=== PATIENT | male | born 1960 | race Two or more races ===

== ENCOUNTER → 2017-01-01 | Outpatient (CLI) | payer BC, OTHER ==
--- NOTE | 2017-01-01 11:40 | REP ---
Prostate sonography: History: PSA. Sonographic findings: Trans rectal prostate sonography demonstrates unremarkable seminal vesicles. Prostate gland is heterogeneously enlarged with calcifications and cystic changes noted. Glandular dimensions are measured at 4.6 x 3.2 x 4.8 cm with a calculated glandular volume of 35.8 ml. Transrectal sonographic guidance provided to Dr. Becker who performed trans rectal ultrasound guided needle biopsy procedure . Signed by Matheus Londono MD 01/01/2017 11:31 A
== END ==
LOC: M SMT PRO 08:30
PROVIDERS: ATTEND Urology
DX: C61 Malignant neoplasm of prostate (principal)
CPT/HCPCS: 76872; 76942; G0416

== ENCOUNTER → 2017-01-22 | Outpatient (CLI) | payer BC, OTHER ==
--- NOTE | 2017-01-23 10:49 | RADONC ---
RADIATION ONCOLOGY CONSULTATION NOTE DATE: 01/22/2017 CHART NUMBER: [id number]. DIAGNOSIS: Prostate cancer. STAGE: IIA, TbN0m0. ECOG PERFORMANCE STATUS: Zero. CONSULTATION NOTE: Mr. Rae is a very pleasant, 56-year-old white male with the diagnosis of a stage IIA, [id number] moderate to poorly differentiated Donnie score 7 (3-4) adenocarcinoma of the prostate with a PSA level of 5.5 who is presenting to me today for discussion of definitive external beam radiation therapy with IMRT/IGRT as a therapeutic option. HISTORY OF PRESENT ILLNESS: The patient was in his usual state of health until routine PSA was done; it was found to be 5.5. On 01/01/2017, the patient underwent prostatic needle biopsy and pathology revealed a Donnie score 7 (3-4) adenocarcinoma of the left side of his prostate. The patient has done well since surgery and is now presenting to discuss his various therapeutic options including external beam radiation therapy with IMRT/IGRT. PAST MEDICAL HISTORY: The patient's past medical history is positive for hypertension. He has had gout in the past as well. ALLERGIES: The patient has NO KNOWN DRUG ALLERGIES. SOCIAL HISTORY: The patient does not smoke cigarettes. He drinks alcohol socially. FAMILY HISTORY: The patient's family history is negative for prostate cancer or other malignancies. REVIEW OF SYSTEMS: The patient's review of systems is noncontributory. Denies nausea, vomiting, fevers, chills, night sweats, diplopia, headaches, anxiety or depression, anorexia, weight loss, visual disturbances, chest pain, urinary or bowel difficulties, bone pain, or neurological problems. PHYSICAL EXAMINATION: The patient is a well-developed, well-nourished male in no acute distress. HEENT exam is normocephalic, atraumatic. Extraocular movements are intact. There is no palpable cervical, supraclavicular, infraclavicular, axillary, or inguinal lymphadenopathy present. Lungs are clear to auscultation and percussion. Heart has a regular rate and rhythm. Abdomen is benign with no hepatosplenomegaly, masses, or tenderness. Rectal examination reveals a normal anal sphincter tone. His prostate is smooth with no evidence of nodularity. Skeletal examination reveals no tenderness to pressure or percussion of the bony skeleton. Extremities reveal no clubbing, cyanosis, or edema. Neurologic exam is grossly intact, as is the remainder of the physical examination. MEDICAL NECESSITY: IMRT/IGRT is clinically indicated for the highly conformal dose planning required. The target volume is in close proximity to critical structures, such as the rectum, bladder, small bowel, and femoral heads. The volume of interest must be covered with narrow margins to adequately protect immediately adjacent structures. The plan requires interpretation of complex testing such as CT localization. As noted above, special planning (IMRT) and localizing (IGRT) is required and essential to maximally protect sensitive normal tissue structures which cannot be accomplished using conventional 3-dimensional planning. ASSESSMENT: I have had a lengthy discussion with this patient in detail about the potential benefits as well as possible acute and chronic sequelae of external beam radiation therapy. We discussed logistics of treatment planning, simulation and subsequent fractionated daily radiation treatments. I have discussed with the patient in detail as well the benefits and drawbacks of each of the treatment modalities including surgery, brachytherapy and external beam radiation with IMRT. The patient will consider his options and get back to us when he makes a decision. We also discussed the possibility of hormonal therapy with radiation. He will be discussing that once again with his urologist. cc: MD Cathy Treadwell PA
== END ==
LOC: M ONCR 14:10
PROVIDERS: ATTEND Radiology Radiation Oncology
DX: C61 Malignant neoplasm of prostate (principal)

== ENCOUNTER → 2017-02-13 | Outpatient (CLI) | payer BC, OTHER ==
--- NOTE | 2017-02-13 13:57 | REP ---
TRANSRECTAL PROSTATE ULTRASOUND GUIDANCE FOR FIDUCIARY MARKER PLACEMENT: Real-time sonographic evaluation of prostate performed utilizing transrectal probe for guidance for fiduciary marker placement. The images show a needle deploying fiduciary markers with six markers deployed by Dr. Becker. Signed by Ruel Avalos MD 02/13/2017 04:45 P
== END ==
LOC: M SMT PRO 11:48
PROVIDERS: ATTEND Urology
DX: C61 Malignant neoplasm of prostate (principal)
CPT/HCPCS: 76872; A4648

== ENCOUNTER 2017-02-28 11:11 | Outpatient (RCR) | payer BC, OTHER ==
--- NOTE | 2017-03-01 21:19 | RADONC ---
RADIATION ONCOLOGY SIMULATION NOTE DATE: 02/28/2017 CHART NUMBER: [id number] Mr. Rae was taken to the CT scan for CT simulation of his prostate field. CT was accomplished without difficulty or discomfort. Radiation treatment planning is underway and radiation treatments will begin subsequently. An immobilization device was created without difficulty or discomfort. It will be used throughout the course of treatment. I was physically present throughout the course of CT simulation.
== END 2017-03-21 ==
LOC: M ONCR 11:11
PROVIDERS: ATTEND Radiology Radiation Oncology
DX: C61 Malignant neoplasm of prostate (principal)

== ENCOUNTER → 2017-02-28 | Outpatient (CLI) | payer BC, OTHER ==
[2017-02-28 11:27] LABS: MEAN CORPUSCULAR HEMOGLOBIN 30.2 pg (27.0-33.0); MEAN CORPUSCULAR HGB CONC 33.4 g/dl (32.0-36.5); MEAN CORPUSCULAR VOLUME 90.4 fl (80.0-96.0); PLATELET COUNT, AUTOMATED 142 10^3/uL (150-450); RED CELL DISTRIBUTION WIDTH 12.4 % (11.5-14.5); WHITE BLOOD COUNT 5.2 10^3/uL (4.0-10.0)
== END ==
LOC: M RAD 10:20
PROVIDERS: ATTEND Radiology Radiation Oncology
DX: C61 Malignant neoplasm of prostate (principal)

== ENCOUNTER 2017-03-22 14:33 | Outpatient (RCR) | payer BC, OTHER | END 2017-04-21 | LOC: M ONCR 14:33 | DX: C61 Malignant neoplasm of prostate (principal) | CPT/HCPCS: 77336 ==

== ENCOUNTER 2017-04-23 11:02 | Outpatient (RCR) | payer BC, OTHER | END 2017-05-22 | LOC: M ONCR 11:02 | DX: C61 Malignant neoplasm of prostate (principal) | CPT/HCPCS: 77300 ==

== ENCOUNTER 2017-05-23 11:11 | Outpatient (RCR) | payer BC, OTHER | END 2017-06-19 | LOC: M ONCR 11:11 | DX: C61 Malignant neoplasm of prostate (principal) | CPT/HCPCS: 77336 ==

== ENCOUNTER → 2017-07-03 | Outpatient (CLI) | payer BC, OTHER ==
[2017-07-03 17:12] LABS: PROSTATIC SPECIFIC AG MONITOR 0.01 NG/ML (< 4.0)
== END ==
LOC: M ONCR 15:33
DX: C61 Malignant neoplasm of prostate (principal)
CPT/HCPCS: 84153

== ENCOUNTER → 2017-12-24 | Outpatient (CLI) | payer BC, OTHER ==
[2017-12-24 16:45] LABS: PROSTATIC SPECIFIC AG MONITOR < 0.01 NG/ML (< 4.0)
== END ==
LOC: M LAB 15:10
DX: C61 Malignant neoplasm of prostate (principal)
CPT/HCPCS: 84153

== ENCOUNTER → 2018-01-01 | Outpatient (CLI) | payer BC, OTHER | LOC: M ONCR 15:21 | DX: C61 Malignant neoplasm of prostate (principal) | CPT/HCPCS: G0463 ==

== ENCOUNTER → 2018-07-02 | Outpatient (CLI) | payer BC, OTHER ==
--- NOTE | 2018-07-07 10:33 | RADONC ---
RADIATION ONCOLOGY FOLLOWUP NOTE DATE: 07/02/2018 CHART NUMBER: [id number] DIAGNOSIS: Prostate cancer. STAGE: IIA, [id number]. ECOG PERFORMANCE STATUS: 0. FOLLOWUP NOTE: Mr. Rae is a very pleasant 57-year-old white male with the diagnosis of a Stage IIA, [id number], moderate to poorly differentiated Donnie score 7 (3-4) adenocarcinoma of prostate who is presenting to us today for routine followup visit 1 year and 1 month post completion of external beam radiation therapy. The patient presents today reporting that he is doing quite well with no complaints related to his radiation therapy or disease. He has no urinary or bowel difficulties and no bone pain. The patient's review of systems is noncontributory. He denies nausea, vomiting, fevers, chills, night sweats, diplopia, headaches, anxiety or depression, anorexia, weight loss, visual disturbances, chest pain, urinary or bowel difficulties, bone pain, or neurological problems. PHYSICAL EXAMINATION: The patient is a well-developed, well-nourished male in no acute distress. HEENT exam is normocephalic, atraumatic. Extraocular movements are intact. There is no palpable cervical, supraclavicular, infraclavicular, axillary, or inguinal lymphadenopathy present. Lungs are clear to auscultation and percussion. Heart has a regular rate and rhythm. Abdomen is benign with no hepatosplenomegaly, masses, or tenderness. Rectal examination reveals a normal anal sphincter tone. His prostate is smooth with no evidence of nodularity. Skeletal examination reveals no tenderness to pressure or percussion of the bony skeleton. Extremities reveal no clubbing, cyanosis, or edema. Neurologic exam is grossly intact as is the remainder of the physical examination. ASSESSMENT: The patient is clinically MUKUL at this time. He is continuing his close followup with his urologist, Dr. Oh Becker MD. In light of this I have discharged him from my followup except on an as needed basis. He has my cell phone number and office number if we could be of any assistance to him in the meantime. cc: MD Cathy Treadwell PA
== END ==
LOC: M ONCR 15:27
PROVIDERS: ATTEND Radiology Radiation Oncology
DX: Z08 Encounter for follow-up examination after completed treatment for malignant neoplasm (principal); Z92.3 Personal history of irradiation; Z85.46 Personal history of malignant neoplasm of prostate

== ENCOUNTER → 2019-04-20 | Outpatient (CLI) | payer BC, OTHER | LOC: M WUC 14:08 | PROVIDERS: ATTEND Urology | DX: C61 Malignant neoplasm of prostate (principal) ==

== ENCOUNTER 2019-05-08 19:53 | Inpatient (IN) | payer BC, OTHER ==
[~2019-05-08] VITALS: Ht 177.8 cm; Wt 113.5 kg
[2019-05-08] MEDS ORDERED: FEBU40TA4 PO (20:01)
[2019-05-08] MEDS ORDERED: METO200T28 PO (20:01)
[2019-05-08] MEDS ORDERED: OLME1TAB (20:01)
[2019-05-08 20:45] LABS: BASO % 0.3 % (0.0-1.0); EOS # 0.1 10^3/uL (0.0-0.5); EOS % 1.1 % (0.0-3.0); HEMATOCRIT 49.8 % (42.0-52.0); LYMPH # 1.4 10^3/uL (1.5-5.0); MEAN CORPUSCULAR HEMOGLOBIN 28.9 pg (27.0-33.0); MEAN CORPUSCULAR HGB CONC 32.1 g/dl (32.0-36.5); MEAN CORPUSCULAR VOLUME 90.1 fl (80.0-96.0); MONO # 0.8 10^3/uL (0.0-0.8); MONO % 7.2 % (0.0-5.0); NEUTROPHILS # 8.9 10^3/uL (1.5-8.5); PLATELET COUNT, AUTOMATED 213 10^3/uL (150-450); RED BLOOD COUNT 5.53 10^6/uL (4.30-6.10); WHITE BLOOD COUNT 11.2 10^3/uL (4.0-10.0)
[2019-05-08] MEDS ORDERED: IPRATROPIUM 0.5MG/ALBUTEROL 2.5MG INH SOL UD 3ML (DUONEB)(J7620) NEB ONE (20:45)
[2019-05-08 21:13] LABS: CALCIUM LEVEL 8.9 MG/DL (8.5-10.1); CK-MB VALUE MASS 4.7 NG/ML (<3.6); CREATININE FOR GFR 1.58 MG/DL (0.70-1.30); GLOMERULAR FILTRATION RATE 48.4 (>56); MB/CK RELATIVE INDEX 3.73 (< OR =4); TROPONIN I 1.7 NG/ML (< 0.10)
[2019-05-08] MEDS ORDERED: ISOVUE-370 76% 100ML VIAL (Q9967) As Ordered ONE (21:28)
--- NOTE | 2019-05-08 22:00 | REPVR ---
PROCEDURE INFORMATION: Exam: CT Angiography Chest With Contrast Exam date and time: 05/08/2019 9:41 PM Age: 58 years old Clinical indication: Shortness of breath; Additional info: SOB, hypoxia, tachycardia TECHNIQUE: Imaging protocol: Computed tomographic angiography of the chest with intravenous contrast. 3D rendering: MIP and/or 3D reconstructed images were created by the technologist. Radiation optimization: All CT scans at this facility use at least one of these dose optimization techniques: automated exposure control; mA and/or kV adjustment per patient size (includes targeted exams where dose is matched to clinical indication); or iterative reconstruction. Contrast material: ISOVUE 370; Contrast volume: 75 ml; Contrast route: IV; COMPARISON: CR CHEST 2 VIEW 05/08/2019 7:28 PM FINDINGS: Pulmonary arteries: There is a large saddle pulmonary embolism with extensive clot extending throughout both lungs. Mild enlargement of the main pulmonary artery. Aorta: Unremarkable. No aortic aneurysm. No aortic dissection. Lungs: Small subpleural airspace opacity in the left lower lobe. Lungs are otherwise clear. Airways are clear. No pulmonary masses. Pleural space: Trace left pleural effusion. Heart: Overall heart size is normal. Right atrial ventricular enlargement suggesting right heart strain. No pericardial effusion. Gallbladder and bile ducts: Layering calculi in the gallbladder. No signs of acute cholecystitis. Kidneys and ureters: Small cyst in the right kidney. Lymph nodes: Unremarkable. No enlarged lymph nodes. Bones/joints: Skeletal degenerative changes are noted. Mild scoliosis. Soft tissues: Unremarkable. IMPRESSION: 1. Large saddle pulmonary embolism with extensive thrombus throughout both lungs and right heart strain. 2. Small subpleural opacity in the left lower lobe may be related to pulmonary embolism versus developing pneumonia. 3. Trace left pleural effusion. Electronically signed by: Florentino Begum On 05/08/2019 22:00:20 PM
[2019-05-08] MEDS ORDERED: HEPARIN DRIP 25,000 UNITS in IV 1 EA IV SCH (22:08)
[2019-05-08] MEDS ORDERED: HEPARIN SOD (PORCINE) 5000 UNITS/ML VIAL IV ONE (22:15)
[2019-05-08 22:30] LABS: INR 1.08; PROTHROMBIN TIME 13.7 SECONDS (11.8-14.0)
[2019-05-08 22:31] LABS: PARTIAL THROMBOPLASTIN TIME 30.4 SECONDS (25.0-38.4)
[2019-05-08] MEDS ORDERED: TRIBTAB PO ×2 (22:34→22:46)
[2019-05-08] MEDS ORDERED: INDO-16 PO (22:46)
--- NOTE | 2019-05-08 23:08 | REPVR ---
PROCEDURE INFORMATION: Exam: US Duplex Lower Extremity Veins Exam date and time: 05/08/2019 10:49 PM Age: 58 years old Clinical indication: Other: Pe; Additional info: Pe, eval for dvt's TECHNIQUE: Imaging protocol: Real-time duplex ultrasound of the Lower Extremities with 2-D avilez scale, color Doppler flow and spectral waveform analysis with image documentation. Complete exam focused on the bilateral lower extremity veins. COMPARISON: No relevant prior studies available. FINDINGS: Right deep veins: Unremarkable. The common femoral, femoral, proximal profunda femoral and popliteal veins are patent without thrombus. Normal Doppler waveforms. Normal compressibility and/or augmentation response. Right superficial veins: Saphenofemoral junction is patent without thrombus. Left deep veins: Large amount of nonocclusive thrombus in the left popliteal vein extending into the PT trunk. No DVT in the common femoral vein. Left superficial veins: Saphenofemoral junction is patent without thrombus. Soft tissues: Unremarkable. IMPRESSION: 1. Large amount of nonocclusive thrombus in the left popliteal vein extending into the PT trunk. 2. No DVT in the right leg. Electronically signed by: Florentino Begum On 05/08/2019 23:07:54 PM
[2019-05-09] VITALS (16 sets, daily range): BP systolic 99–129; BP diastolic 50–78
[2019-05-09] MEDS ORDERED: HEPARIN DRIP 25,000 UNITS in IV 1 EA IV SCH (00:02)
[2019-05-09] MEDS ORDERED: HEPARIN SOD (PORCINE) 5000 UNITS/ML VIAL IV PRN (00:15)
[2019-05-09] MEDS ORDERED: ONDANSETRON 4MG/2ML VIAL (J2405) IV PRN (00:15)
[2019-05-09 01:29] LABS: ERYTHROCYTE SEDIMENTATION RATE 6 mm/hr (0-20)
--- NOTE | 2019-05-09 01:37 | HPEPDOC ---
[facility] Medical History & Physical Date of Admission May 09, 2019 Date of Service: May 09, 2019 History and Physical CHIEF COMPLAINT: Shortness of breath HISTORY OF PRESENT ILLNESS: This is a 58-year-old male with a pertinent past medical history of prostate cancer, and hypertension presented to the ER for shortness of breath for the last 1 week. He is accompanied by his who supplements the history with the patient. Mr. Rae states that one week ago he started to notice shortness of breath while ambulating outside for about 10-15 minutes. He states that normally he is able to ambulate 1-2 hours with no problem. He originally thought this shortness of breath was secondary to the cold/bronchospasm so he didnt think anything of it. He noticed as the week progressed to shortness of breath did not improve. On the day of presentation, he noticed when he was ambulating up the stairs in his house he was significantly short of breath. He he states he felt like he was starving for oxygen. He denies having any chest pain, pleuritic pain, swelling in his leg, shortness of breath at rest or while sleeping. He admits to having night sweats but the prior, subjective fevers, and some chills for last week. He denies any recent sick contact, recent travel or any recent surgeries. Because his symptoms were not improving he went to the urgent care for further recommendations. At the urgent care he had a chest x-ray which was negative and vitals were within normal limits. It was recommended to him by the provider that he needs to go to the ER for further evaluation. In the ER, vitals showed tachycardia sinus rhythm, and normal respiration rate satting at 92% on room air. CT angios of the chest shows large saddle PE with right heart strain. Labs showed a troponin elevation of 1.70. Dr. Mcgrath was called to the ER who recommended starting heparin drip and will see the patient in the morning for target TPA therapy. Hospitalist team was then called for admission PAST MEDICAL HISTORY: 1. History of prostate cancer status post radiation 2018 2. Gout 3. Hypertension HOME MEDICATIONS: Please see below. ALLERGIES: Please see below PAST SURGICAL HISTORY: 1. 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 ETOH: Social drinker 3-6 beers,Illicit drug use: Denies, CODE STATUS: Full code FAMILY HISTORY: Reviewed. Father alive, hypertension and heart disease. Mother , diabetes, hypertension, heart disease REVIEW OF SYSTEMS: Constitutional: No Weight Change, No Fever, No Fatigue, No Malaise, Admits to holiday weight gain (10 lbs), Some Chills, 1 episode of Night Sweats ENT/Mouth: No Hearing Changes, No Ear Pain, No Nasal Congestion, No Sinus Pain, No Hoarseness, No sore throat, No Rhinorrhea, No Swallowing Difficulty Eyes: No Eye Pain, No Swelling, No Redness, No Foreign Body, No Discharge, No Vision Changes Cardiovascular: No Chest Pain, , No PND, No Orthopnea, No Claudication, No Edema, No Palpitations. Admits to SOB and Dyspnea on Exertion, Respiratory: No Cough, No Sputum, No Wheezing, No Smoke Exposure Gastrointestinal: No Nausea, No Vomiting, No Diarrhea, No Constipation, No Pain, No Heartburn, No Anorexia, No Dysphagia, No Hematochezia, No Melena, No Flatulence, No Jaundice Genitourinary: No Dysuria, No Urinary Frequency, No Hematuria, No Urgency, No Flank Pain, No Urinary Flow Changes, Musculoskeletal: No Arthralgias, No Myalgias, No Joint Swelling, No Joint Stiffness, No Back Pain, No Neck Pain, Admits to falling off bed 2 weeks ago denies major trauma Skin: No Skin Lesions, No Pruritis, Neuro: No Weakness, No Numbness, No Paresthesias, No Loss of Consciousness, No Syncope, No Dizziness, No Headache, No Coordination Changes, No Recent Falls Heme/Lymph: No Bruising, No Bleeding, No Transfusions History, No Lymphadenopathy Endocrine: No Polyuria, No Polydipsia, No Temperature Intolerance PHYSICAL EXAMINATION: VITAL SIGNS: Temperature 98.7 pulse 96, respiratory rate 16, blood pressure 100/66 (77), pulse oximetry 93 % on room air. GENERAL: Pleasant 58 year old male sitting up in bed awake alert oriented speaking in complete sentences, no acute distress, no accessory muscle use or belly breathing HEENT: Atraumatic, normocephalic, moist mucous membranes, generally appear pale, no JVD CARDIOVASCULAR: S1 S2 tachycardic rate no additional heart sounds appreciated. RESPIRATORY: Clear to auscultation bilaterally, decreased chest excursion, no dullness to percussion no tenderness to palpation ABDOMINAL: Bowel sounds present abdomen soft and nontender EXTREMITIES: No clubbing cyanosis or edema. 2+ pedal pulses bilaterally. No tenderness of the calf muscles bilaterally as well. NEUROLOGICAL: no gross focal deficits appreciated PSYCHOLOGICAL: Appropriate LABORATORY DATA: See below. MICROBIOLOGY: Please see below. IMAGIN05/08/2019 CT Angio Chest 1. Large saddle pulmonary embolism with extensive thrombus throughout both lungs and right heart strain. 2. Small subpleural opacity in the left lower lobe may be related to pulmonary embolism versus developing pneumonia. 3. Trace left pleural effusion. Vascular ultrasound- 1. Large amount of nonocclusive thrombus in the left popliteal vein extending into the PT trunk. 2. No DVT in the right leg. ASSESSMENT & PLAN: This is a 58-year-old male with a pertinent past medical history of prostate cancer, and hypertension presented to the ER for shortness of breath for the last 1 week. PROBLEMS: 1. Shortness of breath secondary to Submassive PE. - CT angios of the chest shows large saddle pulmonary embolism with extensive thrombi throughout both lungs and right heart strain. - PESI score of 137; Class V - Very High Risk for 30 day mortality at 10-25% - Troponins are elevated at 1.70 possible secondary to the right heart strain. - Will start heparin drip. Per the recommendation of Dr. Mcgrath, vascular surgeon, she will see the patient in the morning for TPA therapy; targeted vs. systemic - Currently he has no contraindications for TPA. - Will keep him nothing by mouth diet till after the procedure. - After the procedure will need outpatient anticoagulation for at least 3-6 months or lifelong pending results of anticoagulation. 2. Noninclusive thrombus Of the left popliteal vein extending to the PT trunk. - Even though it noninclusive he does have a thrombi as well as a PE so hell need at least 3-6 months of anticoagulation. - History of cancer does put him at a higher risk for hypercoagulable state but he has been in remission for last 2 years. - No recent immobilization or surgery, no history of PE or DVT, no recent prolonged travel or recent injury therefore will do a hypercoagulable workup. - Will need to continue the patient anticoagulation for at least 3-6 months or lifelong pending results of anticoagulation. 3. Elevated troponins possible secondary to problem one. - EKG shows sinus tachycardia with a rate of 106, left axis deviation with poor r wave progression in the lateral leads, - There is questionable Q waves in lead 3 and aVF. Possibly secondary to problem 1. - Will trend troponin and EKG every 6 hours and if there is changes will discuss with Vascular Surgeon for further recommendations. - CT angios of the chest does show left ventricular hypertrophy, consider echocardiogram once resolved 4. History of prostate cancer. - In remission, Follow Dr. Becker outpatient 5. Hypertension. - Due to problem 1, will hold home medication. 6. Gout. - Hold home medication 7. Elevated BUN and creatinine. - Will hold IV fluids (re: likely elevated right heart pressures) - We will hold nephrotoxic drugs and monitor his BUN and creatinine levels with daily labs. - Will likely need IV hydration post-resolution of R heart strain DVT PROPHYLAXIS: - Heparin drip DISPOSITION: Admit to ICU expect at least 2 midnights. Vital Signs Vital Signs Date Time Temp Pulse Resp B/P (MAP) Pulse Ox O2 Delivery O2 Flow Rate FiO2 05/09/19 01:00 89 18 103/68 (80) 92 Room Air 05/08/19 19:59 98.7 Laboratory Data Labs 24H Laboratory Tests 2 05/08/19 20:20: Immature Granulocyte % (Auto) 0.4, Neutrophils (%) (Auto) 79.0H, Lymphocytes (%) (Auto) 12.0L, Monocytes (%) (Auto) 7.2H, Eosinophils (%) (Auto) 1.1, Basophils (%) (Auto) 0.3, Neutrophils # (Auto) 8.9H, Lymphocytes # (Auto) 1.4L, Monocytes # (Auto) 0.8, Eosinophils # (Auto) 0.1, Basophils # (Auto) 0.0, Nucleated Red Blood Cells % (auto) 0.0, Erythrocyte Sedimentation Rate 6, Anion Gap 12, Glomerular Filtration Rate 48.4L, Calcium Level 8.9, Total Creatine Kinase 126, Creatine Kinase MB 4.7H, Creatine Kinase MB Relative Index 3.73, Troponin I 1.70*H, GG-Qlo-H-Type Natriuretic Peptide 1237H 05/08/19 21:03: POC pH (Misc Panel) 7.451H, POC Base Excess (Misc Panel) -3.0L, POC Saturated Percent O2 (Misc) 89L, POC pO2 (Misc Panel) 53.0L, POC pCO2 (Misc Panel) 29.9L, POC HCO3 (Misc Panel) 20.9L, POC Total CO2 (Misc Panel) 22.0L 05/08/19 22:00: Prothrombin Time 13.7, Prothromb Time International Ratio 1.08, Activated Partial Thromboplast Time 30.4 05/09/19 00:17: Activated Partial Thromboplast Time 98.8H CBC/BMP Laboratory Tests 05/08/19 20:20 Home Medications Scheduled Febuxostat (Uloric) 40 Mg Tablet, 40 MG PO DAILY Metoprolol Succinate (Metoprolol Succinate) 200 Mg Tab.er.24h, 200 MG PO DAILY Olmesartan/Amlodipin/Hcthiazid (Tribenzor 40-5-25 mg Tablet) 1 Each Tablet, 1 TAB PO DAILY Scheduled PRN Indomethacin (Indomethacin) 25 Mg Capsule, 25 MG PO BID PRN for gout flare Allergies Coded Allergies: No Known Drug Allergies (Verified Allergy, Unknown, 05/08/19) GME ATTESTATION GME ATTESTATION My faculty preceptor for this patient encounter was physically present during the encounter and was fully available. All aspects of the patient interview, examination, medical decision making process, and medical care plan development were reviewed and approved by the faculty preceptor. The faculty preceptor is aware and concurs with the plan as stated in the body of this note and will attest to such by his/her cosignature. ATTENDING NOTE I, Shoshana Valencia, have independently examined this patient and performed my own physical exam, as well as reviewed the documentation and edited where necessary. I have discussed in detail with the resident / student the findings and plan of treatment as documented by the resident / student and edited their note. I agree with their findings and treatment plan and have edited their documentation. I will continue to follow the patient during this hospital stay. - Discussed findings of CTA chest and Vascular US with patient - Patient is at very high risk of mortality given his significant saddle embolism and concurrent deep vein thrombosis - I have outlined to him that there is a chance of sudden given theses findings - Risks and benefits of anticoagulation therapy and tPA therapy have been outline - he has verbalized understanding and will be proceeding with this modality ZIGGY CHUN DO May 09, 2019 01:37 SHOSHANA VALENCIA MD May 09, 2019 05:15
[2019-05-09 01:44] LABS: C REACTIVE PROTEIN QUANTITATIV 5.53 MG/DL (0.00-0.30)
[2019-05-09 03:23] LABS: CK-MB VALUE MASS 5.9 NG/ML (<3.6); MB/CK RELATIVE INDEX 4.76 (< OR =4); TROPONIN I 1.46 NG/ML (< 0.10)
[2019-05-09 06:03] LABS: MEAN CORPUSCULAR HEMOGLOBIN 28.8 pg (27.0-33.0); MEAN CORPUSCULAR HGB CONC 31.9 g/dl (32.0-36.5); MEAN CORPUSCULAR VOLUME 90.2 fl (80.0-96.0); PLATELET COUNT, AUTOMATED 175 10^3/uL (150-450); RED BLOOD COUNT 5.21 10^6/uL (4.30-6.10); WHITE BLOOD COUNT 9.1 10^3/uL (4.0-10.0)
[2019-05-09 06:32] LABS: CREATININE FOR GFR 1.4 MG/DL (0.70-1.30); GLOMERULAR FILTRATION RATE 55.6 (>56); MAGNESIUM LEVEL 2.4 MG/DL (1.8-2.4); POTASSIUM SERUM 4.3 MEQ/L (3.5-5.1)
--- NOTE | 2019-05-09 08:03 | CR.PDOC ---
General Date of Consultation: May 09, 2019 Consultation REASON FOR CONSULTATION/CHIEF COMPLAINT: Shortness of breath HISTORY OF PRESENT ILLNESS: Mr. Rae is a very pleasant 58-year-old gentleman who presented to the ER with a one-week history of worsening shortness of breath. Initially, he thought he had an upper respiratory infection, but over the past 24 hours his shortness of breath worsened and he was unable to climb a flight of stairs. He came to the ER for evaluation and appropriately had a CT of the chest which revealed pulmonary embolus. He does have a saddle pulmonary embolus, but the saddle portion is narrow and nonocclusive through the main pulmonary arteries. However, he does have significant pulmonary emboli through out the segmental arterial branches bilaterally. This is likely propagated over the past week since he has not been on treatment with anticoagulation and has worsened his hypoxia. CTA also reveals right atrial enlargement suggesting pulmonary hypertension and right heart strain. His troponins are elevated at 1.7 which correlates as well, although down this morning to 1.4 after anticoagulation overnight. Due to right heart strain, pulmonary hypertension, worsening shortness of breath, I think the patient is a good candidate for TPA thrombolysis of submassive PE. I reviewed his lower extremity venous duplex as well. He has nonocclusive thrombus in the left popliteal popliteal vein and posterior tibial vein, and I do not think he will require an IVC filter at this time. I suspect he had extensive femoral clot that has artery emboli is to the pulmonary arteries, but the remaining clot is fairly minimal. The patient and I had a lengthy discussion about the risks benefits and alternatives to TPA thrombolysis. He has not had any acute bleeding episodes in the past 3 months. This includes nose bleeds, bleeding gums, hemoptysis, hematemesis, blood in his stools, traumas or injuries, and the only thing he reports is some mild bleeding from hemorrhoids a month ago. He said it was 1 episode with 1 bowel movement and not ongoing. We will watch this closely after the procedure. He has no history of intracranial aneurysms, AVMs, stroke TIAs or other concerning intracranial processes. He has not had any recent surgeries or procedures. After an extensive discussion with the patient, he is agreeable to proceed and informed consent was obtained. We will try to get this done as soon as possible this morning. The patient is agreeable to this plan. ALLERGIES: Please see below. HOME MEDICATIONS: Please see below. PAST MEDICAL HISTORY: 1. Prostate cancer s/p XRT 2. HTN 3. Hemorrhoids 4. Gout PAST SURGICAL HISTORY: 1. Prostate biopsy FAMILY HISTORY: No history of bleeding or clotting disorders, DVT, or PE SOCIAL HISTORY: , denies tob or illicit drug use REVIEW OF SYSTEMS: CONSTITUTIONAL: Denies weight loss, weight gain, fevers/chills HEENT: Denies vision changes or hearing loss CARDIOVASCULAR: Denies chest pain. Positive palpitations. RESPIRATORY: Positive shortness of breath. GENITOURINARY: Denies dysuria. MUSCULOSKELETAL: Denies back pain or leg pain. Intermittent mild left lower extremity swelling noted over the past month GASTROINTESTINAL: Denies nausea vomiting diarrhea constipation. SKIN: Denies rashes or wounds. NEUROLOGICAL: Denies seizures headaches or focal neurologic deficits. PSYCHIATRIC: Denies anxiety or depression. ENDOCRINE: Denies diabetes or thyroid disease. HEMATOLOGIC/LYMPHATIC: Denies anemia bleeding or clotting disorders. ALLERGIC/IMMUNOLOGIC: Denies. PHYSICAL EXAMINATION: VITAL SIGNS: Please see below. GENERAL APPEARANCE: Appears healthy and in no acute distress. HEENT: Normocephalic, pupils equal and reactive, speech clear, tympanic membranes intact. RESPIRATORY: Patient is on nasal cannula oxygen, breath sounds are slightly d ecreased bibasilar. CARDIOVASCULAR: Regular rate and rhythm. ABDOMEN: Soft nontender nondistended. EXTREMITIES: Distal pulses 2+, no significant edema left lower extremity. NEUROLOGICAL: Alert and oriented 3, moves all extremities equally. PSYCHIATRIC: Pleasant and cooperative. LABORATORY DATA: Please see below. ASSESSMENT/PLAN: Very pleasant 58-year-old gentleman with unprovoked left lower extremity DVT and one-week history of shortness of breath, nonocclusive saddle pulmonary embolus with extensive subsegmental clot, symptomatic with shortness of breath, right heart strain, elevated troponins, and no contraindication at this moment for TPA thrombolysis. 1. Will proceed to IR for TPA thrombolysis catheter placement. Patient will return to the ICU postprocedure on bed rest and TPA will run for 12-24 hours, unless any bleeding episodes occur and then we will reevaluate accordingly. 2. Continue heparin drip at therapeutic range for now. 3. Agree with hypercoagulable workup. Patient will need at least one year anticoagulation after PE, possibly lifelong if hypercoagulable state diagnosed. We appreciate the opportunity to participate in the care of this patient. Vital Signs/I&O Vital Signs Date Time Temp Pulse Resp B/P (MAP) Pulse Ox O2 Delivery O2 Flow Rate FiO2 05/09/19 05:00 76 100/65 (77) 93 Nasal Cannula 1.0 05/09/19 04:00 98.1 18 I&O- Last 24 Hours up to 6 AM 05/09/19 06:00 Intake Total 25 ml Output Total 0 ml Balance 25 ml Laboratory Data Labs 24H Laboratory Tests 2 05/08/19 20:20: Immature Granulocyte % (Auto) 0.4, Neutrophils (%) (Auto) 79.0H, Lymphocytes (%) (Auto) 12.0L, Monocytes (%) (Auto) 7.2H, Eosinophils (%) (Auto) 1.1, Basophils (%) (Auto) 0.3, Neutrophils # (Auto) 8.9H, Lymphocytes # (Auto) 1.4L, Monocytes # (Auto) 0.8, Eosinophils # (Auto) 0.1, Basophils # (Auto) 0.0, Nucleated Red Blood Cells % (auto) 0.0, Erythrocyte Sedimentation Rate 6, Anion Gap 12, Glomerular Filtration Rate 48.4L, Calcium Level 8.9, Total Creatine Kinase 126, Creatine Kinase MB 4.7H, Creatine Kinase MB Relative Index 3.73, Troponin I 1.70*H, C-Reactive Protein, Quantitative 5.53H, TM-Pxq-V-Type Natriuretic Peptid e 1237H 05/08/19 21:03: POC pH (Misc Panel) 7.451H, POC Base Excess (Misc Panel) -3.0L, POC Saturated Percent O2 (Misc) 89L, POC pO2 (Misc Panel) 53.0L, POC pCO2 (Misc Panel) 29.9L, POC HCO3 (Misc Panel) 20.9L, POC Total CO2 (Misc Panel) 22.0L 05/08/19 22:00: Prothrombin Time 13.7, Prothromb Time International Ratio 1.08, Activated Partial Thromboplast Time 30.4 05/09/19 00:17: Activated Partial Thromboplast Time 98.8H 05/09/19 02:52: Total Creatine Kinase 124, Creatine Kinase MB 5.9H, Creatine Kinase MB Relative Index 4.76H, Troponin I 1.46H 05/09/19 05:45: Nucleated Red Blood Cells % (auto) 0.0, Activated Partial Thromboplast Time 44.6H, Anion Gap 10, Glomerular Filtration Rate 55.6L, Calcium Level 9.0, Magnesium Level 2.4 CBC/BMP Laboratory Tests 05/08/19 20:20 05/09/19 05:45 Allergies Coded Allergies: No Known Drug Allergies (Verified Allergy, Unknown, 05/08/19) Home Medications Scheduled Febuxostat (Uloric) 40 Mg Tablet, 40 MG PO DAILY, (Reported) Metoprolol Succinate (Metoprolol Succinate) 200 Mg Tab.er.24h, 200 MG PO DAILY, (Reported) Olmesartan/Amlodipin/Hcthiazid (Tribenzor 40-5-25 mg Tablet) 1 Each Tablet, 1 TAB PO DAILY, (Reported) Scheduled PRN Indomethacin (Indomethacin) 25 Mg Capsule, 25 MG PO BID PRN for gout flare, (Reported) ROBIN PAINTER MD May 09, 2019 08:03
[2019-05-09] MEDS ORDERED: ceFAZolin 1GM INJ (J0690 PER 500MG) As Ordered ONE ×2 (08:28→08:37)
[2019-05-09] MEDS ORDERED: ISOVUE-300 61% 50ML VIAL (Q9967) As Ordered ONE (08:29)
[2019-05-09] MEDS ORDERED: LIDOCAINE 1% MDV 20ML VIAL As Ordered ONE (08:29)
[2019-05-09] MEDS ORDERED: ALTEPLASE 2 MG/2 ML VIAL (J2997 PER 1MG) As Ordered ONE (08:30)
[2019-05-09] MEDS ORDERED: fentaNYL 100 MCG/2 ML INJECTION (J3010) As Ordered ONE (08:31)
[2019-05-09] MEDS ORDERED: MIDAZOLAM INJ 2 MG/2 ML VIAL (J2250) As Ordered ONE (08:31)
[2019-05-09 09:16] LABS: CK-MB VALUE MASS 5.3 NG/ML (<3.6); MB/CK RELATIVE INDEX 4.91 (< OR =4); TROPONIN I 1.06 NG/ML (< 0.10)
[2019-05-09] MEDS: ALTEPLASE RECOMBINANT 25 MG in NS 225 ML IV SCH (10:00)
[2019-05-09] MEDS: HEPARIN DRIP 25,000 UNITS in IV 1 EA IV SCH (10:00)
--- NOTE | 2019-05-09 10:03 | ECGEPIP ---
[facility] - ED Test Date: 2019-05-08 Pat Name: RUTH SALAS Department: Room: [place] [address] Gender: Male [employer]: ER : 1960 Requested By: DANTE Amador Order Number: [id number] Reading MD: Ree Fan Measurements Intervals [place] Rate: 106 P: 47 [place]: 148 QRS: -24 QRSD: 114 T: -10 QT: 358 QTc: 476 Interpretive Statements SINUS TACHYCARDIA INFERIOR MYOCARDIAL INFARCTION, OF INDETERMINATE AGE PRWP NSTTW abnormalities No prior Electronically Signed on 05-09-2019 10:03:03 EST by Ree Fan
--- NOTE | 2019-05-09 10:13 | ECGEPIP ---
[facility] Test Date: 2019-05-09 Pat Name: RUTH SALAS Department: Room: [place] [address] Gender: Male [employer]: [place] : 1960 Requested By: ZIGGY Bright Order Number: [id number] Reading MD: Rowdy Mo Measurements Intervals [place] Rate: 85 P: 54 [place]: 156 QRS: -11 QRSD: 98 T: -15 QT: 392 QTc: 467 Interpretive Statements SINUS RHYTHM Delayed anterior R wave progression Nonspecific ST-T wave abnormalities Inferior Q waves of uncertain significance Similar to tracing done 05-08-19 Electronically Signed on 05-09-2019 10:12:55 EST by Rowdy Mo
--- NOTE | 2019-05-09 10:39 | ROOPDOC ---
[facility] Report Of Operation Report of Operation DATE OF PROCEDURE: 05/09/19 PREPROCEDURE DIAGNOSES: Submassive bilateral and nonocclusive saddle PE with significant shortness of breath, right heart strain and elevated troponins POSTPROCEDURE DIAGNOSES: Same. PROCEDURE: 1. Limited pulmonary arteriogram 2. Placement of a TPA thrombolysis infusion catheter, 20 cm infusion length SURGEON: Robin Mcgrath MD ANESTHESIA: Local anesthesia 3 mL lidocaine. Moderate intravenous conscious sedation was supervised by Dr. Mcgrath. The patient was independently monitored by registered nurse assigned to the Department of radiology using automated blood pressure, EKG, and pulse oximetry. The detailed sedation record is probably started in the hospital information system. The brief sedation record is as follows: Start time 09:12, stop time 09:41, Versed 1 mg IV, fentanyl 25 g IV, 8 mg TPA. CONTRAST: 8 mL Isovue-300 INDICATION FOR PROCEDURE: Mr. Rae is a very pleasant 58-year-old gentleman with a one-week history of shortness of breath that became progressively worse until he was unable to climb a flight of stairs yesterday, and came to the ER yesterday evening. CTA revealed a nonocclusive saddle embolus with significant bilateral subsegmental pulmonary emboli as well. The patient had significant right heart enlargement on CT scan suggestive of pulmonary hypertension and right heart strain. He also had elevated troponins of 1.7 and BNP greater than 1200, which correlates with this as well. Extensive discussions were held regarding possible contraindications for TPA thrombolysis, and the patient has no recent episodes of acute bleeding, no history of intracranial AVMs aneurysms or bleeds, no recent stroke or TIA, no recent traumas, no recent surgeries and was felt to be a suitable risk profile for TPA thrombolysis. Risks benefits and alternatives were explained and he was agreeable to proceed. Informed consent was obtained. INTERPRETATION: The patient has increased creatinine and decreased GFR during this admission, and therefore we wanted to use very minimal contrast. A very limited pulmonary arteriogram was performed on the left to make sure we were in the pulmonary artery, and on the right to make sure we were in the pulmonary art estefani before TPA was in Méndez to either side. Formal pulmonary arteriogram was not performed to limit contrast used. CT of the chest is sufficient imaging for this procedure. The TPA lysis catheter was left through the right pulmonary artery embolic infuse over the next 12-24 hours. REPORT OF OPERATION: The patient was brought to the angiographic suite in stable condition and placed supine on the fluoroscopic table. His right groin was prepped and draped in a sterile fashion. A timeout was performed. Sedation was administered without complication. Local anesthesia was a account executive healthcare to skin and subcutaneous tissue over the right groin and a microneedle was used to access the right femoral vein under ultrasound guidance. A wire was passed through this access under fluoroscopic guidance and a micro-sheath was placed. The wire was exchanged for Glidewire was used advanced into the IVC under fluoroscopic guidance and up into the SVC, and then the sheath was exchanged for a 70 cm 7 American sheath. The sheath was flushed with saline. We then advanced a pigtail catheter over the wire and advanced this into the right atrium and up into the pulmonary artery. We then selected the left pulmonary artery and a quick contrast injection confirmed we were in the vessel and 6 mg of TPA was administered on the left. We then navigated R wire over to the right pulmonary artery and placed a 20 cm TPA lysis catheter over the wire. A quick contrast injection confirmed we were in the correct position and 2 mg TPA was administered through the catheter and then a TPA drip was started at 1 mg per hour or 10 mL an hour of the TPA drip with concentration of 25 mg TPA and 250 mL normal saline. The heparin drip was restarted on the sheath at 400 units an hour. The area was carefully cleaned and dried and Tegaderms were used to secure the catheter to the skin. The patient was then taken to recovery and back to the ICU in stable condition. There were no complications and he tolerated the sedation and the procedure well. ESTIMATED BLOOD LOSS: Approximately 3 mL. COMPLICATIONS: None. PLAN: The patient will return to the ICU for 12-24 hours of TPA infusion. We will follow his labs closely. We will see how he does symptomatically over the next day and consider repeat pulmonary arteriogram versus just pulling the catheter at the bedside, depending on clinical findings and renal function. He will be on bedrest for that time. We will provide anxiolytics and analgesia. He will have clear liquids only until the catheter is removed. ROBIN MCGRATH MD May 09, 2019 10:39
[2019-05-09] MEDS: diazePAM 5 MG TAB PO SCH ×3 (12:30→23:08)
[2019-05-09] MEDS: NS 1,000 ML IV SCH ×2 (12:31→18:44)
--- NOTE | 2019-05-09 14:58 | IPNPDOC ---
Text Note Date of Service The patient was seen on 05/09/19. NOTE SUBJECTIVE: Patient is a 58-year-old gentleman admitted for large saddle pulm onary embolism. He was started on heparin drip overnight, he has been scheduled for targeted TPA today by vascular surgery. He was seen after his TPA procedure OBJECTIVE: PHYSICAL EXAMINATION: GENERAL APPEARANCE: Alert no acute distress. Resting in bed, accompanied by his SKIN: Warm, well perfused., No discoloration LUNGS: Clear to auscultation bilaterally. No wheezing, no rhonchi HEART: Normal S1, S2. No murmurs, no rubs, no gallops EXTREMITIES: Moves all extremities equally. No gross deformities. Tenderness PULSES: 2+ upper and lower extremity . LABORATORY DATA: Please see below. ASSEMENT AND PLAN: 1. Shortness of breath secondary to Submassive PE. - CT angios of the chest shows large saddle pulmonary embolism with extensive thrombi throughout both lungs and right heart strain. - PESI score of 137; Class V - Very High Risk for 30 day mortality at 10-25% -Status post TPA thrombolysis, anticoagulation will be controlled by vascular surgery, along with anxiolytic and analgesia -Clear liqiud diet - After the procedure will need outpatient anticoagulation for at least 3-6 months or lifelong pending results of anticoagulation. 2. Noninclusive thrombus Of the left popliteal vein extending to the PT trunk. - History of cancer does put him at a higher risk for hypercoagulable state but he has been in remission for last 2 years. - No recent immobilization or surgery, no history of PE or DVT, -No recent travel -Pending hypercoagulability workup - Will need to continue the patient anticoagulation for at least 3-6 months or lifelong pending results of anticoagulation. 3. Elevated troponins possible secondary to problem one. - EKG shows sinus tachycardia with a rate of 106, left axis deviation with poor r wave progression in the lateral leads, - There is questionable Q waves in lead 3 and aVF. Possibly secondary to problem 1. - Troponins are elevated at 1.70 possible secondary to the right heart strain. . We'll continue monitor, today's troponin is 1.46 4. History of prostate cancer. - In remission, Follow Dr. Becker outpatient -Donnie 3+4 prostate cancer, and a prebiopsy PSA of 5.5, treated w/ EBRT (completed 05/30/17) Last measure PSA 0.13 on #Right heart strain -Noted on CT angiogram, will order echocardiogram to evaluate for pulmonary h ypertension. 5. Hypertension. - Due to problem 1, will hold home medication. 6. Gout. - Hold home medication 7. Elevated BUN and creatinine. - Will hold IV fluids (re: likely elevated right heart pressures) - We will hold nephrotoxic drugs and monitor his BUN and creatinine levels with daily labs. - Will likely need IV hydration post-resolution of R heart strain DVT PROPHYLAXIS: - Heparin drip VS,Fishbone, I+O VS, Fishbone, I+O Laboratory Tests 05/08/19 20:20 05/09/19 05:45 Vital Signs Date Time Temp Pulse Resp B/P (MAP) Pulse Ox O2 Delivery O2 Flow Rate FiO2 05/09/19 05:00 76 100/65 (77) 93 Nasal Cannula 1.0 05/09/19 04:00 98.1 18 I&O- Last 24 Hours up to 6 AM 05/09/19 05:59 Intake Total 25 ml Output Total 0 ml Balance 25 ml MARLI PACKER DO May 09, 2019 07:53
[2019-05-09 15:22] LABS: CK-MB VALUE MASS 4.2 NG/ML (<3.6); MB/CK RELATIVE INDEX 4.2 (< OR =4); TROPONIN I 0.71 NG/ML (< 0.10)
[2019-05-09] MEDS: PERCOCET 5MG/325MG TAB PO PRN ×3 (16:05→23:16)
[2019-05-09 16:20] LABS: PARTIAL THROMBOPLASTIN TIME 131.9 SECONDS (25.0-38.4)
[2019-05-09] MEDS: OMEPRAZOLE 20 MG CAP PO SCH (19:38)
[2019-05-09] MEDS: DOCUSATE SODIUM 100 MG CAP PO SCH (19:39)
[2019-05-09 20:26] LABS: PARTIAL THROMBOPLASTIN TIME 144.8 SECONDS (25.0-38.4)
[2019-05-09 20:27] LABS: CK-MB VALUE MASS 2.9 NG/ML (<3.6); MB/CK RELATIVE INDEX 2.61 (< OR =4); TROPONIN I 0.62 NG/ML (< 0.10)
[2019-05-10] VITALS (18 sets, daily range): BP systolic 106–141; BP diastolic 59–80
[2019-05-10 02:48] LABS: CK-MB VALUE MASS 2.2 NG/ML (<3.6); MB/CK RELATIVE INDEX 2.08 (< OR =4); TROPONIN I 0.54 NG/ML (< 0.10)
[2019-05-10 03:16] LABS: PARTIAL THROMBOPLASTIN TIME 178.6 SECONDS (25.0-38.4)
[2019-05-10] MEDS: PERCOCET 5MG/325MG TAB PO PRN (04:24)
[2019-05-10] MEDS: diazePAM 5 MG TAB PO SCH ×2 (05:19→12:18)
[2019-05-10 05:34] LABS: HEMATOCRIT 38.7 % (42.0-52.0); MEAN CORPUSCULAR HGB CONC 33.1 g/dl (32.0-36.5); MEAN CORPUSCULAR VOLUME 87.8 fl (80.0-96.0); PLATELET COUNT, AUTOMATED 112 10^3/uL (150-450); RED BLOOD COUNT 4.41 10^6/uL (4.30-6.10); WHITE BLOOD COUNT 7.6 10^3/uL (4.0-10.0)
[2019-05-10 05:37] LABS: HEMOGLOBIN 12.8 g/dl (13.5-17.5)
[2019-05-10 05:51] LABS: BLOOD UREA NITROGEN 16 MG/DL (7-18); CALCIUM LEVEL 7.2 MG/DL (8.5-10.1); CARBON DIOXIDE LEVEL 23 MEQ/L (21-32); CHLORIDE LEVEL 109 MEQ/L (98-107); CREATININE FOR GFR 0.95 MG/DL (0.70-1.30); GLOMERULAR FILTRATION RATE > 60.0 (>56); GLUCOSE, FASTING 124 MG/DL (70-100); POTASSIUM SERUM 3.3 MEQ/L (3.5-5.1); SODIUM LEVEL 139 MEQ/L (136-145)
[2019-05-10] MEDS ORDERED: POTASSIUM CHLORIDE 10% LIQ 20 MEQ/15 ML UDC PO ONE (06:00)
[2019-05-10] MEDS ORDERED: ceFAZolin SOD 2 GM in IV 1 EA IV ONE (06:00)
--- NOTE | 2019-05-10 07:50 | IPNPDOC ---
Text Note Date of Service The patient was seen on 05/10/19. NOTE Time of service 9:10 AM This is a 58-year-old gentleman with a past medical history of hypertension, gout and prostate cancer who was admitted for management of submassive nono cclusive saddle PE /left popliteal vein DVT , status post heparin drip and embolization. SUBJECTIVE:There are no acute overnight events. The patient denies having any worsening of his shortness of breath, chest pain, or leg pain. OBJECTIVE: Temperature 99.6, pulse 75, respiratory 22, blood pressure 138/74, pulse oximetry 95% on 2 L GEN: Obese/ well developed/ NAD HEENT: NCAT / lips acyanotic /mucus membranes moist and pink /nasal cannula in place CVS: RRR/NMRG / left lower extremity edema LUNGS: lungs are clear to auscultation bilaterally NEURO: CN 2-12 are grossly intact / speech is not dysarthric PSYCH: alert and oriented to person place and time/ able to understand and follow all commands Labs WBC 7.6, hemoglobin 12.8, platelets 112 (from 213) Sodium 139, potassium 3.3, chloride 109, Carbon dioxide 23, BUN 16, creatinine 0.95, glucose 124, iron 39, ferritin 339 ASSESSMENT AND PLAN: 1. Submassive PE/left lower extremity DVT Status post thrombolysis. Seems to be unprovoked The diagnosis was made based on the CT scan findings of PEs with right heart strain, elevated BNP and troponin. Plan: Per discussion with Dr. Gage We'll continue with heparin and ateplase until this afternoon and switch to Elquis 10 mg twice a day / f/u hypercoagulable workup / he will likely need to follow up with the pad assembler on an outpatient basis for additional hypercoagulable testing and to determine if he needs lifelong anticoagulation in the setting of an unprovoked ? PE/DVT 2. Iron deficiency anemia. Hemoglobin downtrending. Iron panel reviewed Plan: Follow-up CBC every 6 hours / start her sulfa 325 mg by mouth every other day (every other day dosing is less likely to cause constipation) 3. Thrombocytopenia 4Ts for AUGUSTA Score = 5 = intermediate risk Plan: Per discussion with Dr. Mcgrath into with ateplase and heparin for now pending repeat CBC and hold off PF4 immunoassay 4. Hypokalemia. Magnesium is within normal limits Plan: Replete potassium and follow-up 8labs in the morning 5. Chronic hypertension Currently controlled. Plan: Continue to monitor vitals, and hold home meds 6. History of prostate cancer. Plan: Follow-up with urologist as scheduled 7. Gout. Plan: Continue to hold home meds 8. Back pain. Plan: Lidocaine patch 9.SARINA resolved No need for DVT prophylaxis as he is on treatment dose heparin. Disposition: Pending clinical course Jewel ASKEW, I+O Jewel ASKEW I+O Laboratory Tests 05/10/19 05:09 Vital Signs Date Time Temp Pulse Resp B/P (MAP) Pulse Ox O2 Delivery O2 Flow Rate FiO2 05/10/19 06:00 63 111/65 (80) 90 Nasal Cannula 2.0 05/10/19 04:54 18 05/10/19 00:00 98.7 I&O- Last 24 Hours up to 6 AM 05/10/19 06:00 Intake Total 2892 ml Output Total 1580 ml Balance 1312 ml VANDANA PRADO MD May 10, 2019 07:50
[2019-05-10] MEDS ORDERED: POTASSIUM CHLORIDE 10 MEQ SR TABLET PO ONE (08:00)
[2019-05-10] MEDS: ALTEPLASE RECOMBINANT 25 MG in NS 225 ML IV SCH (08:17)
[2019-05-10 08:29] LABS: FERRITIN 339 NG/ML (26-388); IRON (FE) 39 UG/DL (65-175); PERCENT SATURATION 16.8 % (19.7-50.0); TOTAL IRON BINDING CAPACITY 232 UG/DL (250-450)
[2019-05-10 09:27] LABS: FIBRINOGEN 238 MG/DL (221-452)
[2019-05-10] MEDS: DOCUSATE SODIUM 100 MG CAP PO SCH ×2 (09:46→20:26)
[2019-05-10] MEDS: OMEPRAZOLE 20 MG CAP PO SCH ×2 (09:46→20:26)
[2019-05-10] MEDS: LIDOCAINE 5% (LIDODERM) PATCH TD SCH (09:47)
[2019-05-10 10:30] LABS: PARTIAL THROMBOPLASTIN TIME > 240.0 SECONDS (25.0-38.4)
[2019-05-10] MEDS: HEPARIN DRIP 25,000 UNITS in IV 1 EA IV SCH ×2 (12:23→15:38)
[2019-05-10] MEDS ORDERED: FERROUS SULFATE 325MG TAB PO SCH (14:00)
[2019-05-10] MEDS: NS 1,000 ML IV SCH (14:48)
--- NOTE | 2019-05-10 14:48 | ECHO ---
DATE OF STUDY: 05/09/2019 REFERRING PHYSICIAN: Dr. Bryan Stone INDICATION: Pulmonary embolism. HEIGHT: 178 cm. WEIGHT: 113 kg. 2D MEASUREMENTS: Ventricular septum: 1.27 cm Posterior wall: 1.19 cm Left ventricle diastole: 4.3 cm Left atrium: 3.6 cm LVOT: 2.2 cm DOPPLER MEASUREMENTS: Aortic valve velocity: 119 cm/s No aortic regurgitation. No mitral regurgitation. Mitral E velocity: 39.8 cm/s Mitral A velocity: 49.3 cm/s Mitral deceleration time: 345 ms Mild tricuspid regurgitation. No pulmonic regurgitation. Estimated right ventricle systolic pressure: 48-53 mmHg assuming right pressure of 5-10 mmHg. MITRAL ANNULAR TISSUE DOPPLER: E prime septal: 6.1 cm/s E prime lateral: 8.5 cm/s DESCRIPTION: Rhythm was sinus. This was a moderately technically difficult echocardiogram. This is a 2D, M-mode, color flow Doppler, and pulse wave Doppler examination and included mitral annular tissue Doppler. CONCLUSIONS: 1. Suggestive of moderate elevation of estimated right ventricle systolic pressure (48-53 mmHg). Right ventricle appeared normal in size and systolic function by visual assessment. 2. Very mild concentric left ventricle hypertrophy. Normal regional left ventricular (LV) wall motion and wall thickening. Normal LV systolic function. Left ventricular ejection fraction (LVEF) 60% by visual estimate. Grade 1 LV diastolic dysfunction. 3. Mild aortic valve sclerosis. 4. No pericardial effusion.
--- NOTE | 2019-05-10 14:52 | IPNPDOC ---
Date Seen The patient was seen on 05/10/19. Progress Note Patient seen and examined. Doing much better. He is off nasal cannula oxygen today. He says he is no longer short of breath. He is doing great with his incentive spirometer, maxing out his intake without difficulty. Because the patient had a jump in his creatinine after his last CTA, we like to avoid giving him additional contrast for further imaging. I feel it is safe to discontinue the TPA catheter at this point based on his clinical status alone. Further imaging will not be obtained. I'm happy that with additional IV fluids his creatinine has returned to normal. His urine is still a bit dark in the Singh bag, but improved. He says he is having no issues. Per the nurses, he has had no signs of bleeding throughout the process of TPA thrombolysis. We're pleased with his progress. At the bedside today, I discontinue the TPA thrombolysis catheter and the sheath. The nurse was kind enough to hold pressure for 10 minutes and sterile dressings were applied. The patient will have 3 hours of bedrest, and then slowly start to resume normal activity. I've asked that he get out of bed at some point tonight, and once he is able to stand safely the bedside it's okay to DC the Singh. He may do better to urinate standing at the bedside. Tomorrow, we will try to walk the patient Aman monitor him for dizziness and hypoxia. If he is able to ambulate without difficulty, and his oxygenation remained stable, from a vascular standpoint it will be okay to discharge home. I discussed with her hospitalist team that we will follow his platelets and change the heparin to argatroban if needed, but since we will be discontinuing the heparin at 9 PM when we start eliquis, there should be no issue. I think his platelet count dropped a bit secondary to 24 hours of TPA, and it should come up now with the TPA held. Tonight we'll start 10 mg twice a day of eliquis. He will do the 10 mg and then taper down to 5 mg twice a day. He will need to be on full anticoagulation for a year. He will need follow-up with either vascular surgery office or his PCP with a repeat left lower extremity venous duplex in 3 months. He should definitely continue his incentive spirometry over the next 3 weeks to help reexpand his alveoli. Further recommendations to follow depending on his progress. VS, I&O, 24H, Fishbone Vital Signs/I&O Vital Signs Date Time Temp Pulse Resp B/P (MAP) Pulse Ox O2 Delivery O2 Flow Rate FiO2 05/10/19 12:22 99.0 84 22 137/71 (93) 95 Nasal Cannula 2.0 I&O- Last 24 Hours up to 6 AM 05/10/19 06:00 Intake Total 2892 ml Output Total 1580 ml Balance 1312 ml Laboratory Data 24H LABS Laboratory Tests 2 05/09/19 19:46: Activated Partial Thromboplast Time 144.8*H, Fibrinogen 435, Total Creatine Kinase 111, Creatine Kinase MB 2.9, Creatine Kinase MB Relative Index 2.61, Troponin I 0.62H 05/10/19 01:57: Activated Partial Thromboplast Time 178.6*H, Fibrinogen 349, Total Creatine Kinase 106, Creatine Kinase MB 2.2, Creatine Kinase MB Relative Index 2.08, Troponin I 0.54H 05/10/19 05:09: Nucleated Red Blood Cells % (auto) 0.0, Anion Gap 7L, Glomerular Filtration Rate > 60.0, Calcium Level 7.2#L, Magnesium Level 2.0, Iron Level 39L, Total Iron Binding Capacity 232L, Transferrin % Saturation 16.8L, Ferritin 339 05/10/19 08:34: Activated Partial Thromboplast Time > 240.0*H, Fibrinogen 238 CBC/BMP Laboratory Tests 05/10/19 05:09 ROBIN PAINTER MD May 10, 2019 14:52
[2019-05-10 15:14] LABS: PARTIAL THROMBOPLASTIN TIME 38.4 SECONDS (25.0-38.4)
[2019-05-10 17:14] LABS: HEMATOCRIT 39.4 % (42.0-52.0); HEMOGLOBIN 13.5 g/dl (13.5-17.5); MEAN CORPUSCULAR HEMOGLOBIN 29.8 pg (27.0-33.0); MEAN CORPUSCULAR HGB CONC 34.3 g/dl (32.0-36.5); PLATELET COUNT, AUTOMATED 119 10^3/uL (150-450); RED BLOOD COUNT 4.53 10^6/uL (4.30-6.10); WHITE BLOOD COUNT 7.7 10^3/uL (4.0-10.0)
--- NOTE | 2019-05-10 17:16 | ECGEPIP ---
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
--- NOTE | 2019-05-10 17:20 | ECGEPIP ---
[facility] Test Date: 2019-05-09 Pat Name: RUTH SALAS Department: Room: [place] [address] Gender: Male Rfid Strategist: BRAULIO : 1960 Requested By: ZIGGY Bright Order Number: [id number] Reading MD: Rowdy Mo Measurements Intervals [place] Rate: 71 P: 58 MT: 147 QRS: -9 QRSD: 106 T: -44 QT: 440 QTc: 481 Interpretive Statements SINUS RHYTHM MODERATE INTRAVENTRICULAR CONDUCTION DELAY Inferior Q waves of uncertain significance Nonspecific ST-T wave abnormalities Similar to tracing done 10:41 on same date Electronically Signed on 05-10-2019 17:20:14 EST by Rowdy Mo
--- NOTE | 2019-05-10 17:21 | ECGEPIP ---
[facility] Test Date: 2019-05-09 Pat Name: RUTH SALAS Department: Room: [place] [address] Gender: Male Implementation Analyst: ILIA : 1960 Requested By: ZIGGY Bright Order Number: [id number] Reading MD: Rowdy Mo Measurements Intervals [place] Rate: 73 P: 72 SC: 149 QRS: 0 QRSD: 106 T: -43 QT: 422 QTc: 466 Interpretive Statements SINUS RHYTHM moderate ivcd Inferior Q waves of uncertain significance Nonspecific ST-T wave abnormalities Similar to tracing done 16:16 on same date Electronically Signed on 05-10-2019 17:21:11 EST by Rowdy Mo
--- NOTE | 2019-05-10 17:22 | ECGEPIP ---
[facility] Test Date: 2019-05-10 Pat Name: RUTH SALAS Department: Room: [place] [address] Gender: Male Radiology Scheduler: ILIA : 1960 Requested By: ZIGGY Bright Order Number: [id number] Reading MD: Rowdy Mo Measurements Intervals [place] Rate: 67 P: 50 [place]: 152 QRS: 6 QRSD: 99 T: -38 QT: 387 QTc: 410 Interpretive Statements SINUS RHYTHM Inferior Q waves of uncertain significance Normalized QRS Normalizing ST-T wave segments when compared to tracing done 19:43 on same date baseline artifact Electronically Signed on 05-10-2019 17:22:33 EST by Rowdy Mo
--- NOTE | 2019-05-10 17:24 | ECGEPIP ---
[facility] Test Date: 2019-05-10 Pat Name: RUTH SALAS Department: Room: [place] [address] Gender: Male Board Turner: BRAULIO : 1960 Requested By: ZIGGY Bright Order Number: [id number] Reading MD: Rowdy Mo Measurements Intervals [place] Rate: 76 P: 68 [place]: 150 QRS: 1 QRSD: 102 T: -44 QT: 405 QTc: 456 Interpretive Statements SINUS RHYTHM Inferior Q waves of uncertain significance Nonspecific ST-T wave abnormalities Similar to tracing done on same date at 0155 Baseline artifact Electronically Signed on 05-10-2019 17:24:30 EST by Rowdy Mo
--- NOTE | 2019-05-10 17:27 | ECGEPIP ---
[facility] Test Date: 2019-05-10 Pat Name: RUTH SALAS Department: Room: [place] [address] Gender: Male Cooker Loader: BRAULIO : 1960 Requested By: ZIGGY Bright Order Number: [id number] Reading MD: Rowdy Mo Measurements Intervals [place] Rate: 74 P: 67 [place]: 155 QRS: -2 QRSD: 109 T: -42 QT: 424 QTc: 472 Interpretive Statements SINUS RHYTHM MODERATE INTRAVENTRICULAR CONDUCTION DELAY Inferior Q waves of uncertain significance Nonspecific ST-T wave abnormalities Similar to tracing done 833 on the same date with longer QTc interval Electronically Signed on 05-10-2019 17:27:17 EST by Rowdy Mo
[2019-05-10] MEDS: APIXABAN 5 MG TAB (ELIQUIS) PO SCH (20:27)
[2019-05-10] MEDS ORDERED: **NOTE PATIENT COMMENT** MISC XX SCH (21:00)
[2019-05-10 23:15] LABS: HEMATOCRIT 39.7 % (42.0-52.0); HEMOGLOBIN 13.1 g/dl (13.5-17.5); MEAN CORPUSCULAR HEMOGLOBIN 29.1 pg (27.0-33.0); MEAN CORPUSCULAR VOLUME 88.2 fl (80.0-96.0); PLATELET COUNT, AUTOMATED 114 10^3/uL (150-450)
[2019-05-11] VITALS (8 sets, daily range): BP systolic 116–170; BP diastolic 63–83
[2019-05-11] MEDS ORDERED: GI COCKTAIL 50ML BTL(HYOSCYAMINE/MAALOX/LIDOCAINE VISCOUS)(1:3:1) PO ONE (01:30)
[2019-05-11] MEDS: METOPROLOL SUCC (TopROL XL) 50MG **XL** TAB PO SCH ×2 (01:37→09:39)
[2019-05-11] MEDS: PERCOCET 5MG/325MG TAB PO PRN (01:41)
[2019-05-11 04:32] LABS: HEMATOCRIT 39.3 % (42.0-52.0); HEMOGLOBIN 13.3 g/dl (13.5-17.5); MEAN CORPUSCULAR HEMOGLOBIN 29.7 pg (27.0-33.0); MEAN CORPUSCULAR HGB CONC 33.8 g/dl (32.0-36.5); MEAN CORPUSCULAR VOLUME 87.7 fl (80.0-96.0); PLATELET COUNT, AUTOMATED 114 10^3/uL (150-450); RED BLOOD COUNT 4.48 10^6/uL (4.30-6.10); WHITE BLOOD COUNT 10.8 10^3/uL (4.0-10.0)
[2019-05-11 05:16] LABS: BLOOD UREA NITROGEN 12 MG/DL (7-18); CALCIUM LEVEL 7.4 MG/DL (8.5-10.1); CARBON DIOXIDE LEVEL 25 MEQ/L (21-32); CHLORIDE LEVEL 106 MEQ/L (98-107); CK-MB VALUE MASS 4.3 NG/ML (<3.6); CPK CREATINE PHOSPHOKINASE 210 U/L (39-308); GLOMERULAR FILTRATION RATE > 60.0 (>56); GLUCOSE, FASTING 129 MG/DL (70-100); MAGNESIUM LEVEL 1.9 MG/DL (1.8-2.4); MB/CK RELATIVE INDEX 2.05 (< OR =4); POTASSIUM SERUM 3.9 MEQ/L (3.5-5.1); SODIUM LEVEL 138 MEQ/L (136-145); TROPONIN I 0.12 NG/ML (< 0.10)
[2019-05-11] MEDS: APIXABAN 5 MG TAB (ELIQUIS) PO SCH (08:02)
[2019-05-11] MEDS: DOCUSATE SODIUM 100 MG CAP PO SCH (08:02)
[2019-05-11] MEDS: OMEPRAZOLE 20 MG CAP PO SCH (08:03)
[2019-05-11] MEDS: LIDOCAINE 5% (LIDODERM) PATCH TD SCH ×2 (08:03→09:00)
[2019-05-11] MEDS ORDERED: hydroCHLOROthiazide 25 MG TAB PO ONE (09:00)
[2019-05-11] MEDS ORDERED: amLODIPine 5 MG TAB PO ONE (09:00)
[2019-05-11] MEDS ORDERED: OLMESARTAN MEDOXOMIL 20 MG TAB (BENICAR) PO ONE (09:00)
[2019-05-11] MEDS ORDERED: ELIQ5TAB PO (10:05)
--- NOTE | 2019-05-11 10:34 | IPNPDOC ---
Text Note Date of Service The patient was seen on 05/11/19. NOTE Vascular surgery. Dr. Mcgrath. Patient seen and examined, he is out of bed to the chair eating breakfast. States breathing has been comfortable. Denies cough. Denies chest pain. Continuing to use incentive spirometer, maxing out his intake without difficulty. The patient reports no new concerns and is anxious for discharge Per the nurses, he has had no signs of bleeding. Hemoglobin is 13 Platelet 114, stable. Plan to ambulate this morning, monitor him for dizziness and hypoxia. If he is able to ambulate without difficulty, and his oxygenation remained stable, from a vascular standpoint, okay to discharge home. The patient is started on Eliquis. Recommendation for full anticoagulation for a year. He will need follow-up with either vascular surgery office or his PCP with a repeat left lower extremity venous duplex in 3 months. Follow-up with PCP for hypercoagulable workup. He should definitely continue his incentive spirometry over the next 3 weeks to help reexpand his alveoli. VS,Everardobone, I+O VS, Fishbone, I+O Laboratory Tests 05/10/19 16:56 05/10/19 23:05 05/11/19 04:20 05/11/19 04:21 Vital Signs Date Time Temp Pulse Resp B/P (MAP) Pulse Ox O2 Delivery O2 Flow Rate FiO2 05/11/19 09:39 116/63 05/11/19 09:39 87 05/11/19 09:38 98 Room Air 05/11/19 07:47 98.7 20 05/10/19 12:00 2.0 I&O- Last 24 Hours up to 6 AM 05/11/19 06:00 Intake Total 2575 ml Output Total 1120 ml Balance 1455 ml Kristina Ojeda May 11, 2019 10:33
--- NOTE | 2019-05-11 11:33 | DS.PDOC ---
Discharge Summary General Date of Admission May 09, 2019 at 00:16 Date of Discharge 05/11/19 Attending Physician: VANDANA PRADO MD Specialist/Consultants Involve: ROBIN MCGRATH MD Discharge Summary PROCEDURES PERFORMED DURING STAY: Echocardiogram ADMITTING DIAGNOSES: 1. Shortness of breath DISCHARGE DIAGNOSES: 1. Submassive PE. COMPLICATIONS/CHIEF COMPLAINT: Pulmonary Embolism. HISTORY OF PRESENT ILLNESS: Patient is a 58-year-old male with a past medical history significant for a history of prostate cancer in remission, and hypertension. Whom presented to the ER with a one week history of shortness of breath while ambulating outside for about 10-15 minutes. Prior to this he had not history of shortness of breath or difficulty breathing with ambulation. On intial evalution vitals showed sinus tachycardia rhythm, and normal respiration rate satting at 92% on room air. CT angios of the chest shows large saddle PE with right heart strain. Labs showed a troponin elevation of 1.70. Dr. Mcgrath (Vascular Surgery) was called to the ER who recommended starting heparin drip and will see the patient in the morning for target TPA therapy. HOSPITAL COURSE: Patient was admitted to ICU and started on heparin drip, on day 2 of hospitalization, he underwent TPA procedure without any difficulty. Following the procedure patient was deemed safe to have his TPA catheter discontinued. The patient was placed on bedrest, with a instructions to slowly begin normal activity. On day of discharge he tolerating activity without any difficulty, he was able to ambulate on the unit without hypoxia, dizziness, shortness of breath. Patient was started on argatroban, following discontinuation of heparin at 10 mg twice a day, with instructions to taper to 5 mg twice a day after 7 days. He will need follow-up with either vascular surgery office or his PCP with a repeat left lower extremity venous duplex in 3 months. He should definitely continue his incentive spirometry over the next 3 weeks to help re-expand his alveoli. He was discharged high spirits and looking for to going home. DISCHARGE MEDICATIONS: Please see below. ALLERGIES: Please see below. PHYSICAL EXAMINATION ON DISCHARGE: VITAL SIGNS: Please see below. GENERAL APPEARANCE: Alert no acute distress. SKIN: Warm, well perfused THORAX: Symmetrical. LUNGS: Clear to auscultation bilaterally. HEART: Normal S1, S2. No murmurs, no rubs, no gallops ABDOMEN: Soft. No masses. Bowel sounds are present. EXTREMITIES: Moves all extremities equally. No gross deformities. PULSES: 2+ upper and lower extremity LABORATORY DATA: Please see below IMAGING: CT angios the chest: IMPRESSION: 1. Large saddle pulmonary embolism with extensive thrombus throughout both lungs and right heart strain. 2. Small subpleural opacity in the left lower lobe may be related to pulmonary embolism versus developing pneumonia. 3. Trace left pleural effusion. Vascular ultrasound: 1. Large amount of nonocclusive thrombus in the left popliteal vein extending into the PT trunk. 2. No DVT in the right leg. PROGNOSIS: Stable ACTIVITY: As tolerated DIET: As tolerated DISCHARGE PLAN: To Home DISPOSITION: Fair DISCHARGE INSTRUCTIONS: 1. Repeat left lower extremity venous duplex in 3 months ITEMS TO FOLLOWUP ON ON OUTPATIENT: -He will need follow-up with either vascular surgery office or his PCP with a repeat left lower extremity venous duplex in 3 months. -Follow-up with PCP for hypercoagulable workup. -He should definitely continue his incentive spirometry over the next 3 weeks to help reexpand his alveoli. DISCHARGE CONDITION: Stable TIME SPENT ON DISCHARGE: Greater than 35 minutes. Vital Signs/I&Os Vital Signs Date Time Temp Pulse Resp B/P (MAP) Pulse Ox O2 Delivery O2 Flow Rate FiO2 05/11/19 09:39 116/63 05/11/19 09:39 87 05/11/19 09:38 98 Room Air 05/11/19 07:47 98.7 20 05/10/19 12:00 2.0 I&O- Last 24 Hours up to 6 AM 05/11/19 06:00 Intake Total 2575 ml Output Total 1120 ml Balance 1455 ml Laboratory Data Labs 24H Laboratory Tests 2 05/10/19 14:47: Activated Partial Thromboplast Time 38.4, Fibrinogen 251 05/10/19 16:56: Nucleated Red Blood Cells % (auto) 0.0 05/10/19 23:05: Nucleated Red Blood Cells % (auto) 0.0 05/11/19 04:20: Nucleated Red Blood Cells % (auto) 0.0 05/11/19 04:21: Anion Gap 7L, Glomerular Filtration Rate > 60.0, Calcium Level 7.4L, Magnesium Level 1.9, Total Creatine Kinase 210#, Creatine Kinase MB 4.3H, Creatine Kinase MB Relative Index 2.05, Troponin I 0.12#H CBC/BMP Laboratory Tests 05/10/19 16:56 05/10/19 23:05 05/11/19 04:20 05/11/19 04:21 Discharge Medications Scheduled Apixaban (Eliquis) 5 Mg Tablet, 10 MG PO BID Febuxostat (Uloric) 40 Mg Tablet, 40 MG PO DAILY, (Reported) Metoprolol Succinate (Metoprolol Succinate) 200 Mg Tab.er.24h, 200 MG PO DAILY, (Reported) Olmesartan/Amlodipin/Hcthiazid (Tribenzor 40-5-25 mg Tablet) 1 Each Tablet, 1 TAB PO DAILY, (Reported) Scheduled PRN Indomethacin (Indomethacin) 25 Mg Capsule, 25 MG PO BID PRN for gout flare, (Reported) Allergies Coded Allergies: No Known Drug Allergies (Verified Allergy, Unknown, 05/08/19) GME ATTESTATION GME ATTESTATION My faculty preceptor for this patient encounter was physically present during the encounter and was fully available. All aspects of the patient interview, examination, medical decision making process, and medical care plan development were reviewed and approved by the faculty preceptor. The faculty preceptor is aware and concurs with the plan as stated in the body of this note and will attest to such by his/her cosignature. ATTENDING NOTE I examined Mr. Rae, at 7:20 AM, and edited and review 's note and agree with the findings as documented MARLI PACKER DO May 11, 2019 11:33 VANDANA PRADO MD May 11, 2019 14:32
[2019-05-15 00:06] LABS: ANTI THROMBIN 3 ANTIGEN IMMUNO 86 % (72-124); ANTI THROMBIN 3 FUNCT ACTIVITY 103 % (75-135); HOMOCYST(E)INE SERUM 9.4 umol/L (0.0-15.0); PROTEIN C ANTIGEN 67 % (60-150); PROTEIN S ANTIGEN FREE 86 % (57-157); PROTEIN S ANTIGEN TOTAL 134 % (60-150)
== END 2019-05-11 11:30 | disposition home or self-care (01) | DRG 951 ==
LOC: M ED 19:53 → M ED INP 05-09 00:16 → ENRESERVDT 05-09 00:28 → ENRESERVTM 05-09 00:28 → M ICU 05-09 01:40
PROVIDERS: ADMIT Internal Medicine; ATTEND Internal Medicine
PROC: 3E06317 Introduction of Other Thrombolytic into Central Artery, Percutaneous Approach (ICD-10-PCS; 2019-05-09)
PROC: B31T1ZZ Fluoroscopy of Left Pulmonary Artery using Low Osmolar Contrast (ICD-10-PCS; principal; 2019-05-09 08:38)
PROC: 03PY3YZ Removal of Other Device from Upper Artery, Percutaneous Approach (ICD-10-PCS; 2019-05-10)
DX: I26.92 Saddle embolus of pulmonary artery without acute cor pulmonale (principal); I82.432 Acute embolism and thrombosis of left popliteal vein; I10 Essential (primary) hypertension; M10.9 Gout, unspecified; K64.8 Other hemorrhoids; Z85.46 Personal history of malignant neoplasm of prostate; Z92.3 Personal history of irradiation; Z79.899 Other long term (current) drug therapy

== ENCOUNTER → 2019-05-08 | Outpatient (CLI) | payer BC, OTHER ==
[~2019-05-08] MED LIST: ELIQ5TAB PO; FEBU40TA4 PO; INDO-16 PO; METO200T28 PO; OLME1TAB; TRIBTAB PO
--- NOTE | 2019-05-08 20:11 | REP ---
Chest x-ray: Three views. History: Shortness of breath. Findings: The lungs are symmetrically somewhat hyperinflated but free of infiltrate. Pleural angles are sharp. Heart is not enlarged. The aorta somewhat tortuous. There are degenerative changes in the thoracic spine and thoracic kyphosis is somewhat exaggerated. Impression: No active cardiopulmonary disease. Electronically Signed by Matheus Londono MD 05/08/2019 08:02 P
== END ==
LOC: M WUC 19:18
PROVIDERS: ATTEND Physician Assistant
DX: R06.02 Shortness of breath (principal)

== ENCOUNTER → 2019-08-18 | Outpatient (CLI) | payer BC, OTHER ==
--- NOTE | 2019-08-18 11:30 | REP ---
LEFT LOWER EXTREMITY DUPLEX DOPPLER VENOUS ULTRASOUND: Real-time compression and duplex Doppler interrogation of the left lower extremity deep venous system is performed. Left common femoral, superficial femoral and popliteal veins are fully compressible with transducer pressure and demonstrate normal spontaneous and phasic flow without evidence of deep venous thrombosis. Previously noted thrombus in the popliteal vein is no longer present. There is some residual thrombus in the proximal peroneal vein. IMPRESSION: Improvement since prior study of 05/08/2019. Previously noted thrombus in the left popliteal vein is no longer present. There is decreased amount of thrombus in the left proximal peroneal vein still remaining. Electronically Signed by Ruel Avalos MD 08/18/2019 01:03 P
== END ==
LOC: M RAD 09:37
PROVIDERS: ATTEND Surgery Vascular Surgery
DX: Z86.718 Personal history of other venous thrombosis and embolism (principal); I80.2 Phlebitis and thrombophlebitis of other and unspecified deep vessels of lower extremities

== ENCOUNTER → 2019-10-02 | Outpatient (CLI) | payer BC, OTHER ==
[2019-10-02 10:55] LABS: IMMUNOGLOBULIN M 52.4 MG/DL (40-230)
== END ==
LOC: M WUC 08:48
PROVIDERS: ATTEND Internal Medicine Hematology
DX: Z86.711 Personal history of pulmonary embolism (principal); Z86.718 Personal history of other venous thrombosis and embolism

== ENCOUNTER → 2019-10-02 | Outpatient (CLI) | payer BC, OTHER | LOC: M WUC 08:45 | PROVIDERS: ATTEND Urology | DX: C61 Malignant neoplasm of prostate (principal) ==

== ENCOUNTER → 2019-10-02 | Outpatient (CLI) | payer BC, OTHER ==
[2019-10-02 10:49] LABS: ALT/SGPT 36 U/L (12-78); BLOOD UREA NITROGEN 16 MG/DL (7-18); CALCIUM LEVEL 8.8 MG/DL (8.5-10.1); CARBON DIOXIDE LEVEL 30 MEQ/L (21-32); CHLORIDE LEVEL 106 MEQ/L (98-107); CREATININE FOR GFR 0.93 MG/DL (0.70-1.30); GLOMERULAR FILTRATION RATE > 60.0 (>56); GLUCOSE, FASTING 89 MG/DL (70-100); POTASSIUM SERUM 3.9 MEQ/L (3.5-5.1); SODIUM LEVEL 142 MEQ/L (136-145)
[2019-10-02 10:50] LABS: ALBUMIN 3.6 GM/DL (3.2-5.2); BILIRUBIN,TOTAL 0.7 MG/DL (0.2-1.0); CHOLESTEROL LEVEL 139 MG/DL (<200); CHOLESTEROL RISK RATIO 2.622 (<5); HDL CHOLESTEROL 53 MG/DL (>40); LDL CHOLESTEROL 69 MG/DL (<100); NON-HDL-C 86 MG/DL; TOTAL PROTEIN 6.5 GM/DL (6.4-8.2); TRIGLYCERIDES LEVEL 87 MG/DL (<150); URIC ACID 5.4 MG/DL (3.5-7.2)
[2019-10-02 11:15] LABS: HEMOGLOBIN A1c 5.6 %
== END ==
LOC: M WUC 08:41
PROVIDERS: ATTEND Physician Assistant
DX: R73.01 Impaired fasting glucose (principal); E78.2 Mixed hyperlipidemia; M10.9 Gout, unspecified

== ENCOUNTER → 2020-04-06 | Outpatient (CLI) | payer OTHER, BC ==
[~2020-04-06] MED LIST changes: +LOSA100T5 PO; +NORV5TAB PO
[2020-04-06 14:06] LABS: BASO % 0.6 % (0.0-1.0); EOS # 0.1 10^3/uL (0.0-0.5); EOS % 2.3 % (0.0-3.0); HEMATOCRIT 46.4 % (42.0-52.0); HEMOGLOBIN 15.3 g/dl (13.5-17.5); LYMPH # 1.4 10^3/uL (1.5-5.0); LYMPH % 25.8 % (24.0-44.0); MEAN CORPUSCULAR HEMOGLOBIN 30.3 pg (27.0-33.0); MEAN CORPUSCULAR VOLUME 91.9 fl (80.0-96.0); MONO # 0.5 10^3/uL (0.0-0.8); MONO % 9.6 % (0.0-5.0); NEUTROPHILS # 3.2 10^3/uL (1.5-8.5); NEUTROPHILS % 61.5 % (36.0-66.0); PLATELET COUNT, AUTOMATED 147 10^3/uL (150-450); RED BLOOD COUNT 5.05 10^6/uL (4.30-6.10); WHITE BLOOD COUNT 5.2 10^3/uL (4.0-10.0)
[2020-04-06 14:11] LABS: ALBUMIN 3.6 GM/DL (3.2-5.2); ALT/SGPT 30 U/L (12-78); BILIRUBIN,TOTAL 0.5 MG/DL (0.2-1.0); BLOOD UREA NITROGEN 21 MG/DL (7-18); CALCIUM LEVEL 8.9 MG/DL (8.5-10.1); CARBON DIOXIDE LEVEL 31 MEQ/L (21-32); CHLORIDE LEVEL 109 MEQ/L (98-107); CREATININE FOR GFR 1.24 MG/DL (0.70-1.30); GLOMERULAR FILTRATION RATE > 60.0 (>56); GLUCOSE, FASTING 101 MG/DL (70-100); SODIUM LEVEL 142 MEQ/L (136-145); TOTAL PROTEIN 6.3 GM/DL (6.4-8.2)
[2020-04-06 14:44] LABS: HEMOGLOBIN A1c 5.1 %
== END ==
LOC: M WUC 10:14
PROVIDERS: ATTEND Physician Assistant
DX: I82.532 Chronic embolism and thrombosis of left popliteal vein (principal); I10 Essential (primary) hypertension

== ENCOUNTER → 2020-05-02 | Outpatient (CLI) | payer BC, OTHER ==
--- NOTE | 2020-05-02 14:53 | REP ---
INDICATION: VENOUS THROMBISIS AND EMBOLISM LEFT LEG COMPARISON: None. TECHNIQUE: Avalos scale and color Doppler evaluation left lower extremity using linear high frequency transducer. FINDINGS: Ultrasound examination of the left lower extremity deep venous structures from the common femoral vein to the popliteal vein demonstrates normal compressibility flow and wave patterns in response to respiration and augmentation. There is no evidence for deep venous thrombosis. IMPRESSION: No evidence for deep venous thrombosis. <Electronically signed by Alex Cortez > 05/02/20 [id number]
== END ==
LOC: M RAD 14:00
PROVIDERS: ATTEND Surgery Vascular Surgery
DX: Z86.718 Personal history of other venous thrombosis and embolism (principal)

== ENCOUNTER → 2020-05-20 | Outpatient (CLI) | payer BC, OTHER | LOC: M LABSMTC 12:17 | PROVIDERS: ATTEND Anesthesiology | DX: Z01.812 Encounter for preprocedural laboratory examination (principal); Z20.822 Contact with and (suspected) exposure to COVID-19 ==

== ENCOUNTER 2020-05-25 11:03 | Day surgery (SDC) | payer BC, OTHER ==
[~2020-05-25] VITALS: Ht 177.8 cm; Wt 103.0 kg
--- OUTSIDE RECORDS SUMMARY | 2020-05-25 11:11 | CCD | Continuity of Care Document ---
Author Author Devan MCGRATH MD Organization Unknown Address [address], [address] [place] [address] Phone [phone] Care Team Providers Care Briefcase Sewer Name Role Phone Claudine Collier N.P. AUTM [phone] Problems Active Problems Provider Date Essential hypertension Mitra Mcgrath MD Onset: 0 Social History Type Date Description Comments Sex Unknown ETOH Use Occasionally consumes alcohol Recreational Drug Use Denies Drug Use Tobacco Use Start: Unknown Denies Smoking Smoking Status Reviewed: 05/21/19 Denies Smoking Allergies, Adverse Reactions, Alerts Description No Known Drug Allergies Medications Active Medications SIG Qnty Indications Ordering Provide r Date Uloric 40mg Tablets 1 qd Unknown Metoprolol Succinate ER 200mg Tablets ER 24HR 1 qd Unknown Eliquis 5mg Tablets 1 tab by mouth twice a day Unknown Amlodipine Besylate 5mg Tablets Take One Tablet By Mouth Every Day For Blood Pressure Unk nown Losartan Potassium/Hydrochlorothiazide 100-25mg Tablets Take One Tablet By Mouth Every Day Unknow n Immunizations Description No Information Available Vital Signs Date Vital Result Comment 05/19/2020 9:56am BP Systolic 156 mmHg BP Diastolic 84 mmHg Heart Rate 55 /min Height 70 inches 5'10" Weight 229.25 lb BMI (Body Mass Index) 32.9 kg/m2 [place] Body Weight 166 lb Weight 103.988 kg BSA (Body Surface Area) 2.21 m2 05/17/2020 8:46am BP Systolic 150 mmHg BP Diastolic 80 mmHg Height 70 inches 5'10" Weight 230.00 lb BMI (Body Mass Index) 33.0 kg/m2 [place] Body Weight 166 lb Weight 104.328 kg BSA (Body Surface Area) 2.22 m2 Results Description No Information Available Procedures Description No Information Available Medical Devices Description No Information Available Encounters Description No Information Available Assessments Description No Information Available Plan of Treatment Future Appointment(s):* 06/08/2020 10:30 am - Jesus Valencia NP at [facility] * 05/25/2020 12:00 pm - Ruel Beasley DO at [facility] * 05/25/2020 12:00 pm - Ruel Beasley DO at [facility] Functional Status Description No Information Available Mental Status Description No Information Available Referrals Refer to Dr Reason for Referral Status Appt Date Ruel Beasley D.O. +COLOGUARD, COLONOSCOPY Scheduled 05/17/[address] [place] [id number] [phone]
--- OUTSIDE RECORDS SUMMARY | 2020-05-25 11:11 | CCD | Continuity of Care Document ---
Author Author Devan BEASLEY DO Organization Unknown Address [address], [address] [place] [address] Phone [phone] Care Team Providers Care Electrician Supervisor Name Role Phone Claudine Collier N.P. AUTM [phone] Problems Active Problems Provider Date Essential hypertension [...] Available Vital Signs Date Vital Result Comment 05/17/2020 8:46am BP Systolic 150 mmHg BP Diastolic 80 mmHg Height 70 inches 5'10" Weight 230.00 lb BMI (Body Mass Index) 33.0 kg/m2 [place] Body Weight 166 lb Weight 104.328 kg BSA (Body Surface Area) 2.22 m2 08/27/2019 9:05am BP Systolic 148 mmHg BP Diastolic 74 mmHg Body Temperature 97.8 F Height 70 inches 5'10" Weight 225.25 lb BMI (Body Mass Index) 32.3 kg/m2 [place] Body Weight 166 lb Weight 102.173 kg BSA (Body Surface Area) 2.20 m2 Results Description No Information Available Procedures Description No Information Available Medical Devices Description No Information Available Encounters Description No Information Available Assessments Description No Information Available Plan of Treatment Future Appointment(s):* 05/19/2020 9:45 am - Mitra Mcgrath MD at [facility] 08/27/2019 - JORGE Arellano* Z86.718 Personal history of other venous thrombosis and embolism * I26.92 Saddle embolus of pulmonary artery without acute cor pulmonale Functional Status Description No Information Available Mental Status Description No Information Available Referrals Refer to Reason for Referral Status Appt Date Ruel Beasley D.O. +COLOGROSA M, COLONOSCOPY Scheduled 05/17/[address] [place] [address] [id number] [phone]
--- OUTSIDE RECORDS SUMMARY | 2020-05-25 11:11 | CCD | Continuity of Care Document ---
Author Author Devan COLLIER INSTRUMENT MAKER APPRENTICE Organization Unknown Address [address] [place] [address] Phone [phone] Care Team Providers Care Pinion Polisher Name Role Phone [facility] [place] [facility] AUTM [phone] Problems Active Problems Provider Date Essential hypertension Cathy Garduno RPA-C Onset: 08/03 Social History Type Date Description Comments Sex Unknown Tobacco Use Start: Unknown Never Smoked Cigarettes Tobacco Use Start: Unknown Never Used Smokeless Tobacco ETOH Use Occasionally consumes alcohol Tobacco Use Start: Unknown Patient has never smoked Recreational Drug Use Denies Drug Use Smoking Status Reviewed: 04/26/20 Patient has never smoked Exercise Type/Frequency walking treadmill 3-4 ti mes a week most of the time Sun Exposure Uses sunscreen Seat Belt/Car Seat Always uses seat belt Smoke Alarms Yes Smoke Alarms Carbon Monoxide Detector: Yes Allergies, Adverse Reactions, Alerts Description No Known Drug Allergies Medications Active Medications SIG Qnty Indications Ordering Provide r Date Losartan Potassium/Hydrochlorothiazide 100-25mg Tablets one tab by mouth daily 90tabs Claudine Collier F NP 03/14/2020 Amlodipine Besylate 5mg Tablets take one tablet by mouth every day for blood pressure 90tabs Claudine Vasquez FNP 03/14/2020 Metoprolol Succinate ER 200mg Tablets ER 24HR take one tablet by mouth every day for blood pressure 90tabs Brigida Saenz M.D. 01/02/2018 Uloric 40mg Tablets take one tablet by mouth every day 90tabs M10.9 Brigida Saenz M.D. 011 Multivitamins Capsules 1 by mouth every day Unknown Eliquis 5mg Tablets 1 tablet by mouth twice a day-Marketing Research Analyst is monitoring, will be reducing to 1/2 tab bid in 2020 Unknown Immunizations CPT Code Status Date Vaccine Lot # [id number] Given 01/19/2020 Influenza Virus Vaccine, Quadrivalent,age 3 and up,multidose vial 62099 Given 02/06/2019 Influenza Virus Vaccine, Quadrivalent,age 3 and up,multidose vial 84586 Given 04/09/2018 Zoster (Shingles ) Vaccine (HZV), Recombinant, Subunit, Adjuvanted 83903 Given 01/02/2018 Influenza Virus Vaccine, Quadrivalent,age 3 and up,multidose vial [id number] 77669 Given 11/19/2017 Zostavax 86738 Given 03/01/2017 Influenza Virus Vaccine, Quadrivalent,age 3 and up,multidose vial 37886 Given 02/07/2016 Influenza Vaccination 79700 Given 02/10/2014 Adacel 11 Yrs [place] older [id number] [address] Given 02/11/2013 Influenza Vaccination [id number] 42551 Given 02/06/2011 Influenza Vaccination [id number] 47285 Given 02/02/2010 Influenza Vaccination [id number] Vital Signs Date Vital Result Comment 04/26/2020 8:02am BP Systolic 155 mmHg BP Diastolic 84 mmHg BP Systolic Recheck 148 mmHg recheck BP Diastolic Recheck 82 mmHg recheck Heart Rate 70 /min Body Temperature 97.0 F Respiratory Rate 16 /min Height 69.0 inches 5'9" Weight 231.38 lb O2 % BldC Oximetry 98 % Peak Expiratory Flow Rate 508 Estimated Peak Flow Rate [place] Body Weight 160 lb BMI (Body Mass Index) 34.2 kg/m2 10/15/2019 7:44am BP Systolic 143 mmHg BP Diastolic 80 mmHg BP Systolic Recheck 139 mmHg BP Diastolic Recheck 82 mmHg Heart Rate 62 /min Body Temperature 97.8 F Respiratory Rate 12 /min Height 69.0 inches 5'9" Weight 215.19 lb O2 % BldC Oximetry 96 % Peak Expiratory Flow Rate 510 Estimated Peak Flow Rate [place] Body Weight 160 lb BMI (Body Mass Index) 31.8 kg/m2 Results Test Acquired Date Facility Test Result H/L Range Note CBC With Differential 04/06/2020 [facility] [phone] White Blood Count 5.2 10 Normal 4.0-10.0 Red Blood Count 5.05 10 Normal 4.30-6.10 Hemoglobin 15.3 g/dL Normal 13.5-17.5 Hematocrit 46.4 % Normal 42.0-52.0 Mean Corpuscular Volume 91.9 fl Normal 80.0-96.0 Mean Corpuscular Hemoglobin 30.3 pg Normal 27.0-33.0 Mean Corpuscular HGB Conc 33.0 g/dL Normal 32.0-36.5 Red Cell Distribution Width 12.2 % Normal 11.5-14.5 Platelet Count, Automated 147 10 Low 150-450 Neutrophils % 61.5 % Normal 36.0-66.0 Lymph % 25.8 % Normal 24.0-44.0 [place] % 9.6 % High 0.0-5.0 Eos % 2.3 % Normal 0.0-3.0 Baso % 0.6 % Normal 0.0-1.0 Immature Granulocyte % 0.2 % Normal 0-3.0 Nucleated Red Blood Cell % 0.0 % Normal 0-0 Neutrophils # 3.2 10 Normal 1.5-8.5 Lymph # 1.4 10 Low 1.5-5.0 [place] # 0.5 10 Normal 0.0-0.8 Eos # 0.1 10 Normal 0.0-0.5 Baso # 0.0 10 Normal 0.0-0.2 Comprehensive Metabolic Profil 04/06/2020 [facility] [phone] Glucose, Fasting 101 mg/dL High 70-100 Blood Urea Nitrogen 21 mg/dL High 7-18 Creatinine For GFR 1.24 mg/dL Normal 0.70-1.30 Glomerular Filtration Rate > 60.0 Normal >56 1 Sodium Level 142 mEq/L Normal 136-145 Potassium Serum 4.0 mEq/L Normal 3.5-5.1 Chloride Level 109 mEq/L High 98-107 Carbon Dioxide Level 31 mEq/L Normal 21-32 Anion Gap 2 mEq/L Low 8-16 Calcium Level 8.9 mg/dL Normal 8.5-10.1 Ast/Sgot 15 U/L Normal 7-37 Alt/SGPT 30 U/L Normal 12-78 Alkaline Phosphatase 50 U/L Normal 45-117 Bilirubin,Total 0.5 mg/dL Normal 0.2-1.0 Total Protein 6.3 GM/DL Low 6.4-8.2 Albumin 3.6 GM/DL Normal 3.2-5.2 Albumin/Globulin Ratio 1.3 Normal Hemoglobin A1c 04/06/2020 [facility] [phone] Hemoglobin A1c 5.1 % Normal 2 Estimated Average Glucose 100 mg/dL Normal 60-110 CBC With Differential 04/04/2020 [place] [address] [phone] White Blood Count 5.5 10 Normal 4.0-10.0 Red Blood Count 4.98 10 Normal 4.30-6.10 Hemoglobin 14.6 g/dL Normal 13.5-17.5 Hematocrit 44.9 % Normal 42.0-52.0 Mean Corpuscular Volume 90.2 fl Normal 80.0-96.0 Mean Corpuscular Hemoglobin 29.3 pg Normal 27.0-33.0 Mean Corpuscular HGB Conc 32.5 g/dL Normal 32.0-36.5 Red Cell Distribution Width 12.1 % Normal 11.5-14.5 Platelet Count, Automated 156 10 Normal 150-450 Neutrophils % 61.1 % Normal 36.0-66.0 Lymph % 27.1 % Normal 24.0-44.0 [place] % 8.6 % High 0.0-5.0 Eos % 2.6 % Normal 0.0-3.0 Baso % 0.4 % Normal 0.0-1.0 Immature Granulocyte % 0.2 % Normal 0-3.0 Nucleated Red Blood Cell % 0.0 % Normal 0-0 Neutrophils # 3.3 10 Normal 1.5-8.5 Lymph # 1.5 10 Normal 1.5-5.0 [place] # 0.5 10 Normal 0.0-0.8 Eos # 0.1 10 Normal 0.0-0.5 Baso # 0.0 10 Normal 0.0-0.2 Comprehensive Metabolic Profil 04/04/[address] [place] [address] [phone] Glucose, Fasting 110 mg/dL High 70-100 Blood Urea Nitrogen 21 mg/dL High 7-18 Creatinine For GFR 1.18 mg/dL Normal 0.70-1.30 Glomerular Filtration Rate > 60.0 Normal >56 3 Sodium Level 141 mEq/L Normal 136-145 Potassium Serum 3.8 mEq/L Normal 3.5-5.1 Chloride Level 108 mEq/L High 98-107 Carbon Dioxide Level 29 mEq/L Normal 21-32 Anion Gap 4 mEq/L Low 8-16 Calcium Level 9.0 mg/dL Normal 8.5-10.1 Ast/Sgot 20 U/L Normal 7-37 Alt/SGPT 36 U/L Normal 12-78 Alkaline Phosphatase 49 U/L Normal 45-117 Bilirubin,Total 0.6 mg/dL Normal 0.2-1.0 Total Protein 6.6 GM/DL Normal 6.4-8.2 Albumin 3.4 GM/DL Normal 3.2-5.2 Albumin/Globulin Ratio 1.1 Normal 1 Units are mL/min/1.73 m2 Chronic Kidney Disease Staging per NKF: Stage I & II GFR >=60 Normal to Mildly Decreased Stage III GFR 30-59 Moderately Decreased Stage IV GFR 15-29 Severely Decreased Stage V GFR <15 Very Little GFR Left ESRD GFR <15 on SPECIAL PROCEDURES NURSE 2 REFERENCE RANGES: <=5.6% NORMAL 5.7-6.4% SUGGESTS IMPAIRED GLUCOSE META BOLISM/PREDIABETIC >= 6.5% ABNORMAL 3 Units are mL/min/1.73 m2 Chronic Kidney Disease Staging per NKF: Stage I & II GFR >=60 Normal to Mildly Decreased Stage III GFR 30-59 Moderately Decreased Stage IV GFR 15-29 Severely Decreased Stage V GFR <15 Very Little GFR Left ESRD GFR <15 on SPECIAL PROCEDURES NURSE Procedures Description No Information Available Medical Devices Description No Information Available Encounters Description No Information Available Assessments Date Code Description Provider 04/26/2020 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 Claudine Collier [facility] 04/26/2020 I82.432 Acute embolism and thrombosis of left popliteal vein Claudine Collier FNP 04/26/2020 I10 Essential (primary) hypertension Claudine Collier [facility] 04/26/2020 M10.9 Gout, unspecified Gwyn Collier FNP 04/26/2020 E78.2 Mixed hyperlipidemia Lynne Collier [facility] 04/26/2020 C61 Malignant neoplasm of prostate P Claudine thacker INSTRUMENT MAKER APPRENTICE Plan of Treatment 04/26/2020 - Claudine Collier FNP* 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
--- OUTSIDE RECORDS SUMMARY | 2020-05-25 11:11 | CCD ---
Author Author [facility] Organization [facility] Address Unknown Phone Unavailable Care Team Providers Care Floor Tech Name Role Phone Oh Becker Unavailable PROBLEMS Type Condition ICD9-CM Code QGV50-NF Code Onset Dates Condition S tatus SNOMED Code Notes Problem Prostate cancer C61 Active 730198360 Problem Erectile dysfunction following radiation therapy N 52.35 Active 294715236 Problem Elevated PSA R97.20 Active 126853984 ALLERGIES No Known Allergies ENCOUNTERS from 1960 to 2020-04-13 Encounter Location Date Provider Diagnosis [facility] [address] [place] [address] Mar Oh Gómezler Prostate cancer C61 and Erectile dysfunc tion following radiation therapy N52.35 IMMUNIZATIONS No Information SOCIAL HISTORY Tobacco Use: Social History Observation Description Date Details (start date - stop date) Never Smoker Sex Assigned At : Social History Observation Description Sex Assigned At Unknown Language: Question Answer Notes Languages spoken: Swedish Episcopalian: Question Answer Notes Episcopalian No jew beliefs that would impact health care. Sexual Hx: Question Answer Notes Had sex in the last 12 months (vaginal, oral, or anal)? Yes Have you ever had an STD? No with Women only Use protection? No Alcohol Screening: Question Answer Notes Did you have a drink containing alcohol in the past year? Ye s Points 4 Interpretation Positive How often did you have six or more drinks on one occas ion in the past year? Never (0 points) How many drinks did you have on a typica l day when you were drinking in the past year? 1 or 2 (0 points) How often did you have a drink containing alcohol in t he past year? Four or more times a week (4 points) Tobacco Use: Question Answer Notes Are you a: never smoker REASON FOR REFERRAL No Information VITAL SIGNS Weight 228 lbs Mar, Height 70 in Mar, BMI 32.71 kg/m2 Mar, Heart Rate 58 /min Mar, Respiratory Rate 18 /min Mar, Temperature 96.6 degrees Fahrenheit Mar, Oximetry 100 Mar, MEDICATIONS Medication SIG (Take, Route, Frequency, Duration) Notes Start Da te End Date Status Aspirin 81 MG 1 tablet Orally Once a day Not-Taking Sildenafil Citrate 100 MG 1 tablet Orally Once a day as needed for 30 Active Eligard 45 MG as directed Subcutaneous once Jan, Not-Taking Uloric 40 MG 1 tablet Orally Once a day Active Telmisartan-HCTZ 80-25 MG 1 tablet Orally Once a day Not-Taking Indomethacin 25 MG 1 capsule with food or milk Orally PRN Not-Taking Ympjeemyjd-Khdflfyhep-JVFH 40-10-25 MG 1 tablet Orally Once a day for 30 day(s) Not-Taking Losartan Potassium-HCTZ 100-12.5 MG 1 tablet Orally Once a day f or 30 day(s) Active Metoprolol Succinate ER 200 MG 1 tablet Orally Once a day Active Eliquis 5 MG 1 tab Orally bid Active AmLODIPine Besylate 5 MG 1 tablet Orally Once a day for 30 day(s) Active Ciprofloxacin HCl 500 MG 1 tablet Orally every 12 hrs (start taking the evening prior to your biopsy) Dec, Not-Taking PROCEDURES No Information RESULTS No Results REASON FOR VISIT 6 month fu with psa MEDICAL (GENERAL) HISTORY Type Description Date Medical History Elevated PSA Medical History Hypertension Medical History Gout Medical History Prostate cancer Medical History pulmonary embolism Surgical History TRUS biopsy 01/01/17 Hospitalization History pulmonary embolism 04/2019 Goals Section No Information Health Concerns No Information MEDICAL EQUIPMENT No Information MENTAL STATUS No Information FUNCTIONAL STATUS No Information ASSESSMENTS Encounter Date Diagnosis Assessment Notes Treatment Notes Treatm ent Clinical Notes Mar, Prostate cancer (ICD-10 - C61) - check PSA in 6 months - continue viagra - patient will let us know if he wants to try something different - f/u in 1 yr Mar, Erectile dysfunction following radiation therapy (ICD-10 - N52.35) PLAN OF TREATMENT Treatment Notes Assessment Notes Clinical Notes Prostate cancer - check PSA in 6 mon - continue viagra - patient will let us know if he wants to try something different- f/u in 1 yr Future Test Test Name Order Date PSA MONITOR (HX PROSTATE CA/ABNORMAL PSA) [id number] Next Appt Details 1 Year Reason:prostate cancer Provider Name:Oh Becker, 11:45:00 AM, [address], [place], [address], Follow Up:1 Yearprostate cancer Insurance Providers Payer Name Payer Address Payer Phone Insured Name Patient Relati onship to Insured Coverage Start Date Coverage End Date [facility] [address] [facility] [id number] RUTH GIORDANO self
--- OUTSIDE RECORDS SUMMARY | 2020-05-25 11:11 | CCD | Continuity of Care Document ---
Author Author Devan COLLIER INTERMEDIATE DESIGNER Organization Unknown Address [address] [place] [address] Phone [phone] Care Team Providers Care Spice Cleaner Name Role Phone [facility] [place] [facility] AUTM [phone] Problems Active Problems Provider Date Essential hypertension Cathy Garduno RPA-C Onset: 08/03 Social History Type Date Description Comments Sex Unknown Tobacco Use Start: Unknown Never Smoked Cigarettes Tobacco Use Start: Unknown Never Used Smokeless Tobacco ETOH Use Occasionally consumes alcohol Tobacco Use Start: Unknown Patient has never smoked Recreational Drug Use Denies Drug Use Smoking Status Reviewed: 10/15/19 Patient has never smoked Exercise Type/Frequency walking [...] Tablets 1 tablet by mouth twice a day 180tabs Brigida Saenz M.D. 0 000 Immunizations CPT Code Status Date Vaccine Lot # [id number] Given 01/19/2020 Influenza Virus Vaccine, Quadrivalent,age 3 and up,multidose vial 77918 Given 02/06/2019 Influenza Virus Vaccine, Quadrivalent,age 3 and up,multidose vial 10485 Given 04/09/2018 Zoster (Shingles ) Vaccine (HZV), Recombinant, Subunit, Adjuvanted 03838 Given 01/02/2018 Influenza Virus Vaccine, Quadrivalent,age 3 and up,multidose vial [id number] 64125 Given 11/19/2017 Zostavax 28472 Given 03/01/2017 Influenza Virus Vaccine, Quadrivalent,age 3 and up,multidose vial 56289 Given 02/07/2016 Influenza Vaccination 05017 Given 02/10/2014 Adacel 11 Yrs [id number] [address] Given 02/11/2013 Influenza Vaccination [id number] 88193 Given 02/06/2011 Influenza Vaccination [id number] 04237 Given 02/02/2010 Influenza Vaccination [id number] Vital Signs Date Vital Result Comment 10/15/2019 7:44am BP Systolic 143 mmHg BP Diastolic 80 mmHg BP Systolic Recheck 139 mmHg BP Diastolic Recheck 82 mmHg Heart Rate 62 /min Body Temperature 97.8 F Respiratory Rate 12 /min Height 69.0 inches 5'9" Weight 215.19 lb O2 % BldC Oximetry 96 % Peak Expiratory Flow Rate 510 Estimated Peak Flow Rate [place] Body Weight 160 lb BMI (Body Mass Index) 31.8 kg/m2 06/04/2019 7:33am BP Systolic 122 mmHg BP Diastolic 77 mmHg Heart Rate 57 /min Body Temperature 97.3 F Respiratory Rate 15 /min Height 69.0 inches 5'9" Weight 244.00 lb O2 % BldC Oximetry 99 % Peak Expiratory Flow Rate 510 Estimated Peak Flow Rate [place] Body Weight 160 lb BMI (Body Mass Index) 36.0 kg/m2 Results Test Acquired Date Facility Test Result H/L Range Note CBC With Differential 04/06/2020 [facility] [phone] White Blood Count 5.2 10 Normal 4.0-10.0 [...] 36.0-66.0 Lymph % 25.8 % Normal 24.0-44.0 [place] % 9.6 % High 0.0-5.0 Eos % 2.3 % Normal 0.0-3.0 Baso % 0.6 % Normal 0.0-1.0 Immature Granulocyte % 0.2 % Normal 0-3.0 Nucleated Red Blood Cell % 0.0 % Normal 0-0 Neutrophils # 3.2 10 Normal 1.5-8.5 Lymph # 1.4 10 Low 1.5-5.0 [place] # 0.5 10 Normal 0.0-0.8 Eos # 0.1 10 Normal 0.0-0.5 Baso # 0.0 10 Normal 0.0-0.2 Comprehensive Metabolic Profil 04/06/2020 [facility] [phone] Glucose, Fasting 101 mg/dL High 70-100 Blood [...] Albumin/Globulin Ratio 1.3 Normal Hemoglobin A1c 04/06/2020 [facility] [phone] Hemoglobin A1c 5.1 % Normal 2 Estimated Average Glucose 100 mg/dL Normal 60-110 CBC With Differential 04/04/2020 [place] [address] [phone] White Blood Count 5.5 10 Normal 4.0-10.0 [...] 36.0-66.0 Lymph % 27.1 % Normal 24.0-44.0 [place] % 8.6 % High 0.0-5.0 Eos % 2.6 % Normal 0.0-3.0 Baso % 0.4 % Normal 0.0-1.0 Immature Granulocyte % 0.2 % Normal 0-3.0 Nucleated Red Blood Cell % 0.0 % Normal 0-0 Neutrophils # 3.3 10 Normal 1.5-8.5 Lymph # 1.5 10 Normal 1.5-5.0 [place] # 0.5 10 Normal 0.0-0.8 Eos # 0.1 10 Normal 0.0-0.5 Baso # 0.0 10 Normal 0.0-0.2 Comprehensive Metabolic Profil 04/04/[address] [place] [address] [phone] Glucose, Fasting 110 mg/dL High 70-100 Blood [...] Little GFR Left ESRD GFR <15 on PLANT BREEDER SCIENTIST 2 REFERENCE RANGES: <=5.6% NORMAL 5.7-6.4% SUGGESTS IMPAIRED GLUCOSE META BOLISM/PREDIABETIC >= 6.5% ABNORMAL 3 Units are mL/min/1.73 m2 Chronic Kidney Disease Staging per NKF: Stage I & II GFR >=60 Normal to Mildly Decreased Stage III GFR 30-59 Moderately Decreased Stage IV GFR 15-29 Severely Decreased Stage V GFR <15 Very Little GFR Left ESRD GFR <15 on PLANT BREEDER SCIENTIST Procedures Description No Information Available Medical Devices Description No Information Available Encounters Type Date Location Provider Dx Diagnosis Office Visit 10/15/2019 7:20a Main Office Mavis Romero PA-C Z00.0 0 Encntr for general adult medical exam w/o abnormal findings I26.92 Saddle 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 I82.432 Acute embolism and thrombosi s of left popliteal vein I10 Essential (primary) hyperten brandi M10.9 Gout, unspecified E78.2 Mixed hyperlipidemia C61 Malignant neoplasm of prosta te Assessments Date Code Description Provider 10/15/2019 Z00.00 Encounter for general adult medi jael examination without abno Mavis Romero PA-C 10/15/2019 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 Mavis Romero PA-C 10/15/2019 I82.432 Acute embolism and thrombosis of left popliteal vein Mavis Romero PA-C 10/15/2019 I10 Essential (primary) hypertension Mavis Romero PA-C 10/15/2019 M10.9 Gout, unspecified Mavis Romero PA-C 10/15/2019 E78.2 Mixed hyperlipidemia HeatherLeslee RITESH allen 10/15/2019 C61 Malignant neoplasm of prostate S Mavis mitchell PA-C Plan of Treatment Future Appointment(s):* 04/26/2020 8:00 am - Claudine Collier FNP at Main Office 10/15/2019 - Mavis Romero PA-C* Z00.00 Encounter for general adult medical examination without abno* Comments:* Health maintenance up to date. Overall doing well. LEXA/PHQ 9/CAGE questionnaire negative. Discussed healthy lifestyle choices. 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 following with hematology * Follow up:* 6 months with labs * I82.432 Acute embolism and thrombosis of left popliteal vein* Comments:* as above * I10 Essential (primary) hypertension* Comments:* controlled at home per patient, borderline today * M10.9 Gout, unspecified* Comments:* stable * E78.2 Mixed hyperlipidemia* Comments:* controlled * C61 Malignant neoplasm of prostate* Comments:* follows with urology Functional Status Functional Condition Comment Date Status Glasses otc readers Active Independent with all ADL's Activ e Hearing Aid in both ears Active Independent with all IADL's Acti ve Mental Status Mental Condition Comment Date Status None Active Referrals Description No Information Available
--- OUTSIDE RECORDS SUMMARY | 2020-05-25 11:11 | CCD | Continuity of Care Document ---
Author Author Devan COLLIER [facility] Organization Unknown Address [address] [place] [address] Phone [phone] Care Team Providers Care Agriculture Extension Specialist Name Role Phone [facility] - Urology AUTM [facility] - Surgery AUTM [phone] Problems Active Problems Provider Date Essential hypertension Cathy Garduno, KIMBERLI-C Onset: 08/03 Social History Type Date Description [...] Tablets one tab by mouth daily 90tabs I10 Claudine Collier F NP 03/14/2020 Amlodipine Besylate 5mg Tablets take one tablet by mouth every day for blood pressure 90tabs I10 Claudine Vasquez FNP 03/14/2020 Metoprolol Succinate ER 200mg Tablets ER 24HR take one tablet by mouth every day for blood pressure 90tabs I10 Brigida Saenz M.D. 01/02/2018 Uloric 40mg Tablets take one tablet by mouth every day 90tabs M10.9 Brigida Saenz M.D. 011 Multivitamins Capsules 1 by mouth every day Unknown Eliquis 5mg Tablets 1 tablet by mouth twice a day-Electronic Engraver is monitoring, will be reducing to 1/2 tab bid in 2020 Unknown Immunizations CPT Code Status Date Vaccine Lot # [id number] Given 01/19/2020 Influenza Virus Vaccine, Quadrivalent,age 3 and up,multidose vial 38835 Given 02/06/2019 Influenza Virus Vaccine, Quadrivalent,age 3 and up,multidose vial 09971 Given 04/09/2018 Zoster (Shingles ) Vaccine (HZV), Recombinant, Subunit, Adjuvanted 58546 Given 01/02/2018 Influenza Virus Vaccine, Quadrivalent,age 3 and up,multidose vial [id number] 37333 Given 11/19/2017 Zostavax 44725 Given 03/01/2017 Influenza Virus Vaccine, Quadrivalent,age 3 and up,multidose vial 07632 Given 02/07/2016 Influenza Vaccination 44671 Given 02/10/2014 Adacel 11 Yrs or older [id number] 12106 Given 02/11/2013 Influenza Vaccination [id number] 81317 Given 02/06/2011 Influenza Vaccination [id number] 70456 Given 02/02/2010 Influenza Vaccination [id number] Vital Signs Date Vital Result Comment 04/26/2020 8:02am BP Systolic 155 mmHg BP Diastolic 84 mmHg BP Systolic Recheck 148 mmHg recheck BP Diastolic Recheck 82 mmHg recheck Heart Rate 70 /min Body Temperature 97.0 F Respiratory Rate 16 /min Height 69.0 inches 5'9" Weight 231.38 lb O2 % BldC Oximetry 98 % Peak Expiratory Flow Rate 508 Estimated Peak Flow Rate [place] Body Weight 160 lb BMI (Body Mass [...] Flow Rate 510 Estimated Peak Flow Rate [place] Body Weight 160 lb BMI (Body Mass Index) 31.8 kg/m2 Results Test Acquired Date Facility Test Result H/L Range Note CBC With Differential 04/06/2020 [facility] [phone] White Blood Count 5.2 10 Normal 4.0-10.0 [...] 36.0-66.0 Lymph % 25.8 % Normal 24.0-44.0 [place] % 9.6 % High 0.0-5.0 Eos % 2.3 % Normal 0.0-3.0 Baso % 0.6 % Normal 0.0-1.0 Immature Granulocyte % 0.2 % Normal 0-3.0 Nucleated Red Blood Cell % 0.0 % Normal 0-0 Neutrophils # 3.2 10 Normal 1.5-8.5 Lymph # 1.4 10 Low 1.5-5.0 [place] # 0.5 10 Normal 0.0-0.8 Eos # 0.1 10 Normal 0.0-0.5 Baso # 0.0 10 Normal 0.0-0.2 Comprehensive Metabolic Profil 04/06/2020 [facility] [phone] Glucose, Fasting 101 mg/dL High 70-100 Blood [...] Albumin/Globulin Ratio 1.3 Normal Hemoglobin A1c 04/06/2020 [facility] [phone] Hemoglobin A1c 5.1 % Normal 2 Estimated Average Glucose 100 mg/dL Normal 60-110 CBC With Differential 04/04/2020 [place] [address] [phone] White Blood Count 5.5 10 Normal 4.0-10.0 [...] 36.0-66.0 Lymph % 27.1 % Normal 24.0-44.0 [place] % 8.6 % High 0.0-5.0 Eos % 2.6 % Normal 0.0-3.0 Baso % 0.4 % Normal 0.0-1.0 Immature Granulocyte % 0.2 % Normal 0-3.0 Nucleated Red Blood Cell % 0.0 % Normal 0-0 Neutrophils # 3.3 10 Normal 1.5-8.5 Lymph # 1.5 10 Normal 1.5-5.0 [place] # 0.5 10 Normal 0.0-0.8 Eos # 0.1 10 Normal 0.0-0.5 Baso # 0.0 10 Normal 0.0-0.2 Comprehensive Metabolic Profil 04/04/[address] [place] [address] [phone] Glucose, Fasting 110 mg/dL High 70-100 Blood [...] Little GFR Left ESRD GFR <15 on COMMUNITY ORGANIZER 2 REFERENCE RANGES: <=5.6% NORMAL 5.7-6.4% SUGGESTS IMPAIRED GLUCOSE META BOLISM/PREDIABETIC >= 6.5% ABNORMAL 3 Units are mL/min/1.73 m2 Chronic Kidney Disease Staging per NKF: Stage I & II GFR >=60 Normal to Mildly Decreased Stage III GFR 30-59 Moderately Decreased Stage IV GFR 15-29 Severely Decreased Stage V GFR <15 Very Little GFR Left ESRD GFR <15 on COMMUNITY ORGANIZER Procedures Description No Information Available Medical Devices Description No Information Available Encounters Type Date Location Provider Dx Diagnosis Office Visit 04/26/2020 8:00a Main Office Claudine Collier FNP I26.9 2 Saddle 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 I82.432 Acute embolism and thrombosi s of left popliteal vein I10 Essential (primary) hyperten brandi M10.9 Gout, unspecified C61 Malignant neoplasm of prosta te Assessments Date Code Description Provider 04/26/2020 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 Claudine Collier FNP 04/26/2020 I82.432 Acute embolism and thrombosis of left popliteal vein Claudine Collier, CHIEF LIBRARIAN [employer]IC [employer]PARTMENT 04/26/2020 I10 Essential (primary) hypertension Claudine Collier, CHIEF LIBRARIAN [employer] DEPARTMENT 04/26/2020 M10.9 Gout, unspecified Gwyn Collier, CHIEF LIBRARIAN [employer]IC DEPARTMENT 04/26/2020 C61 Malignant neoplasm of prostate P Claudine thacker, SHANE Plan of Treatment Future Appointment(s):* 10/25/2020 8:00 am - Brigida Saenz M.D. at Main Office 04/26/2020 - Claudine Collier, SHANE* I26.92 Saddle embolus of pulmonary artery without acute cor pulmonale* Comments:* following with hematology, on eliquis * I82.432 Acute embolism and thrombosis of left popliteal vein* Comments:* following with hematology and vascular, on eliquis * I10 Essential (primary) hypertension* Comments:* controlled, continue current medications * Follow up:* 6 months, no labs * M10.9 Gout, unspecified* Comments:* continue uloric, doing well. * C61 Malignant neoplasm of prostate* Comments:* follows with urology, last PSA was normal Functional Status Functional Condition Comment Date Status Glasses otc readers Active Independent with all ADL's Activ e Hearing Aid in both ears Active Independent with all IADL's Acti ve Mental Status Mental Condition Comment Date Status None Active Referrals Refer to Reason for Referral Status Appt Date [facility] pt needs colonoscopy, + color guard Sent [address] [facility], [address] [place] [address] [phone]
--- OUTSIDE RECORDS SUMMARY | 2020-05-25 11:11 | CCD | Continuity of Care Document ---
Author Author Devan COLLIER [facility] Organization Unknown Address [address] [place] [address] Phone [phone] Care Team Providers Care Inclined Railway Operator Name Role Phone [facility] [place] [facility] [phone] Problems Active Problems Provider Date Essential hypertension [...] Tablets 1 tablet by mouth twice a day-Die Machine Operator is monitoring, will be reducing to 1/2 tab bid in 2020 Unknown Immunizations CPT Code Status Date Vaccine Lot # [id number] Given 01/19/2020 Influenza Virus Vaccine, Quadrivalent,age 3 and up,multidose vial 42053 Given 02/06/2019 Influenza Virus Vaccine, Quadrivalent,age 3 and up,multidose vial 56321 Given 04/09/2018 Zoster (Shingles ) Vaccine (HZV), Recombinant, Subunit, Adjuvanted 38637 Given 01/02/2018 Influenza Virus Vaccine, Quadrivalent,age 3 and up,multidose vial [id number] 55598 Given 11/19/2017 Zostavax 69104 Given 03/01/2017 Influenza Virus Vaccine, Quadrivalent,age 3 and up,multidose vial 29161 Given 02/07/2016 Influenza Vaccination 94016 Given 02/10/2014 Adacel 11 Yrs or older [id number] 44178 Given 02/11/2013 Influenza Vaccination [id number] 09259 Given 02/06/2011 Influenza Vaccination [id number] 49689 Given 02/02/2010 Influenza Vaccination [id number] Vital Signs Date Vital Result Comment 04/26/2020 8:02am BP Systolic 155 mmHg BP Diastolic 84 mmHg BP Systolic Recheck 148 mmHg recheck BP Diastolic Recheck 82 mmHg recheck Heart Rate 70 /min Body Temperature 97.0 F Respiratory Rate 16 /min Height 69.0 inches 5'9" Weight 231.38 lb O2 % BldC Oximetry 98 % Peak Expiratory Flow Rate 508 Estimated Peak Flow Rate [place] Body Weight 160 lb BMI (Body Mass [...] Flow Rate 510 Estimated Peak Flow Rate [place] Body Weight 160 lb BMI (Body Mass Index) 31.8 kg/m2 Results Test Acquired Date Facility Test Result H/L Range Note CBC With Differential 04/06/2020 [facility] [phone] White Blood Count 5.2 10 Normal 4.0-10.0 [...] 36.0-66.0 Lymph % 25.8 % Normal 24.0-44.0 [place] % 9.6 % High 0.0-5.0 Eos % 2.3 % Normal 0.0-3.0 Baso % 0.6 % Normal 0.0-1.0 Immature Granulocyte % 0.2 % Normal 0-3.0 Nucleated Red Blood Cell % 0.0 % Normal 0-0 Neutrophils # 3.2 10 Normal 1.5-8.5 Lymph # 1.4 10 Low 1.5-5.0 [place] # 0.5 10 Normal 0.0-0.8 Eos # 0.1 10 Normal 0.0-0.5 Baso # 0.0 10 Normal 0.0-0.2 Comprehensive Metabolic Profil 04/06/2020 [facility] [phone] Glucose, Fasting 101 mg/dL High 70-100 Blood [...] Albumin/Globulin Ratio 1.3 Normal Hemoglobin A1c 04/06/2020 [facility] [phone] Hemoglobin A1c 5.1 % Normal 2 Estimated Average Glucose 100 mg/dL Normal 60-110 CBC With Differential 04/04/2020 [place] [address] [phone] White Blood Count 5.5 10 Normal 4.0-10.0 [...] 36.0-66.0 Lymph % 27.1 % Normal 24.0-44.0 [place] % 8.6 % High 0.0-5.0 Eos % 2.6 % Normal 0.0-3.0 Baso % 0.4 % Normal 0.0-1.0 Immature Granulocyte % 0.2 % Normal 0-3.0 Nucleated Red Blood Cell % 0.0 % Normal 0-0 Neutrophils # 3.3 10 Normal 1.5-8.5 Lymph # 1.5 10 Normal 1.5-5.0 [place] # 0.5 10 Normal 0.0-0.8 Eos # 0.1 10 Normal 0.0-0.5 Baso # 0.0 10 Normal 0.0-0.2 Comprehensive Metabolic Profil 04/04/[address] [place] [address] [phone] Glucose, Fasting 110 mg/dL High 70-100 Blood [...] Little GFR Left ESRD GFR <15 on SEPHORA OPERATIONS CONSULTANT 2 REFERENCE RANGES: <=5.6% NORMAL 5.7-6.4% SUGGESTS IMPAIRED GLUCOSE META BOLISM/PREDIABETIC >= 6.5% ABNORMAL 3 Units are mL/min/1.73 m2 Chronic Kidney Disease Staging per NKF: Stage I & II GFR >=60 Normal to Mildly Decreased Stage III GFR 30-59 Moderately Decreased Stage IV GFR 15-29 Severely Decreased Stage V GFR <15 Very Little GFR Left ESRD GFR <15 on SEPHORA OPERATIONS CONSULTANT Procedures Description No Information Available Medical Devices [...] FNP 04/26/2020 I10 Essential (primary) hypertension Claudine Collier, SHANE 04/26/2020 M10.9 Gout, unspecified Gwyn Collier FNP 04/26/2020 C61 Malignant neoplasm of prostate P Claudine thacker FNP Plan of Treatment Future Appointment(s):* 10/25/2020 8:00 am - Brigida Saenz M.D. at Main Office 04/26/2020 - Claudine Collier FNP* I26.92 Saddle [...]
--- OUTSIDE RECORDS SUMMARY | 2020-05-25 11:12 | CCD | Continuity of Care Document ---
Author Author Devan TYLER PA-C Organization Unknown Address [address] [place] [address] Phone [phone] Care Team Providers Care Waterworks Pump Station Operator Name Role Phone [facility] [place] [facility]M Problems Active Problems Provider Date Essential hypertension [...] twice a day 180tabs Brigida Saenz M.D. 000 Immunizations CPT Code Status Date Vaccine Lot # [id number] Given 01/19/2020 Influenza Virus Vaccine, Quadrivalent,age 3 and up,multidose vial 25725 Given 02/06/2019 Influenza Virus Vaccine, Quadrivalent,age 3 and up,multidose vial 01657 Given 04/09/2018 Zoster (Shingles ) Vaccine (HZV), Recombinant, Subunit, Adjuvanted 95743 Given 01/02/2018 Influenza Virus Vaccine, Quadrivalent,age 3 and up,multidose vial [id number] 60371 Given 11/19/2017 Zostavax 77058 Given 03/01/2017 Influenza Virus Vaccine, Quadrivalent,age 3 and up,multidose vial 44930 Given 02/07/2016 Influenza Vaccination 04769 Given 02/10/2014 Adacel 11 Yrs or older [id number] [address] Given 02/11/2013 Influenza Vaccination [id number] 22451 Given 02/06/2011 Influenza Vaccination [id number] 75576 Given 02/02/2010 Influenza Vaccination [id number] Vital Signs Date Vital Result Comment 10/15/2019 7:44am BP Systolic 143 mmHg BP Diastolic 80 mmHg BP Systolic Recheck 139 mmHg BP Diastolic Recheck 82 mmHg Heart Rate 62 /min Body Temperature 97.8 F Respiratory Rate 12 /min Height 69.0 inches 5'9" Weight 215.19 lb O2 % BldC Oximetry 96 % Peak Expiratory Flow Rate 510 Estimated Peak Flow Rate [place] Body Weight 160 lb BMI (Body Mass Index) 31.8 kg/m2 06/04/2019 7:33am BP Systolic 122 mmHg BP Diastolic 77 mmHg Heart Rate 57 /min Body Temperature 97.3 F Respiratory Rate 15 /min Height 69.0 inches 5'9" Weight 244.00 lb O2 % BldC Oximetry 99 % Peak Expiratory Flow Rate 510 Estimated Peak Flow Rate [place] Body Weight 160 lb BMI (Body Mass Index) 36.0 kg/m2 Results Test Acquired Date Facility Test Result H/L Range Note CBC With Differential 04/06/2020 [facility] [phone] White Blood Count 5.2 10 Normal 4.0-10.0 [...] 36.0-66.0 Lymph % 25.8 % Normal 24.0-44.0 [place] % 9.6 % High 0.0-5.0 Eos % 2.3 % Normal 0.0-3.0 Baso % 0.6 % Normal 0.0-1.0 Immature Granulocyte % 0.2 % Normal 0-3.0 Nucleated Red Blood Cell % 0.0 % Normal 0-0 Neutrophils # 3.2 10 Normal 1.5-8.5 Lymph # 1.4 10 Low 1.5-5.0 [place] # 0.5 10 Normal 0.0-0.8 Eos # 0.1 10 Normal 0.0-0.5 Baso # 0.0 10 Normal 0.0-0.2 Comprehensive Metabolic Profil 04/06/2020 [facility] [phone] Glucose, Fasting 101 mg/dL High 70-100 Blood [...] Albumin/Globulin Ratio 1.3 Normal Hemoglobin A1c 04/06/2020 [facility] [phone] Hemoglobin A1c 5.1 % Normal 2 Estimated Average Glucose 100 mg/dL Normal 60-110 CBC With Differential 04/04/2020 [place] [address] [phone] White Blood Count 5.5 10 Normal 4.0-10.0 [...] 36.0-66.0 Lymph % 27.1 % Normal 24.0-44.0 [place] % 8.6 % High 0.0-5.0 Eos % 2.6 % Normal 0.0-3.0 Baso % 0.4 % Normal 0.0-1.0 Immature Granulocyte % 0.2 % Normal 0-3.0 Nucleated Red Blood Cell % 0.0 % Normal 0-0 Neutrophils # 3.3 10 Normal 1.5-8.5 Lymph # 1.5 10 Normal 1.5-5.0 [place] # 0.5 10 Normal 0.0-0.8 Eos # 0.1 10 Normal 0.0-0.5 Baso # 0.0 10 Normal 0.0-0.2 Comprehensive Metabolic Profil 04/04/[address] [place] [address] [phone] Glucose, Fasting 110 mg/dL High 70-100 Blood [...] Little GFR Left ESRD GFR <15 on CONVEYOR TECHNICIAN 2 REFERENCE RANGES: <=5.6% NORMAL 5.7-6.4% SUGGESTS IMPAIRED GLUCOSE META BOLISM/PREDIABETIC >= 6.5% ABNORMAL 3 Units are mL/min/1.73 m2 Chronic Kidney Disease Staging per NKF: Stage I & II GFR >=60 Normal to Mildly Decreased Stage III GFR 30-59 Moderately Decreased Stage IV GFR 15-29 Severely Decreased Stage V GFR <15 Very Little GFR Left ESRD GFR <15 on CONVEYOR TECHNICIAN Procedures Description No Information Available Medical Devices Description No Information Available Encounters Type Date Location Provider Dx Diagnosis Office Visit 10/15/2019 7:20a Main Office Mavis Tyler PA-C Z00.0 0 Encntr for general adult [...] adult medi jael examination without abno Mavis Tyler PA-C 10/15/2019 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 Mavis Tyler PA-C 10/15/2019 I82.432 Acute embolism and thrombosis of left popliteal vein Mavis Tyler PA-C 10/15/2019 I10 Essential (primary) hypertension Mavis Tyler PA-C 10/15/2019 M10.9 Gout, unspecified Mavis Tyler PA-C 10/15/2019 E78.2 Mixed hyperlipidemia HeatherLeslee RITESH allen 10/15/2019 C61 Malignant neoplasm of prostate S Mavis mitchell PA-C Plan of Treatment Future Appointment(s):* 04/26/2020 8:00 am - Claudine Collier FNP at Main Office 10/15/2019 - Mavis Tyler PA-C* Z00.00 Encounter for general adult medical [...]
--- OUTSIDE RECORDS SUMMARY | 2020-05-25 11:12 | CCD ---
Author Author [facility] Organization [facility] Address Unknown Phone Unavailable Care Team Providers Care Circuit Judge Name Role Phone Scordo, M Mavis PA Unavailable Unavailable Scordo, M Mavis PA Unavailable Unavailable Scordo, M Mavis PA Unavailable Unavailable Scordo, M Mavis PA Unavailable Unavailable Scordo, M Mavis PA Unavailable Unavailable Scordo, M Mavis PA Unavailable Unavailable Scordo, M Mavis PA Unavailable Unavailable Scordo, M Mavis PA Unavailable Unavailable Scordo, M Mavis PA Unavailable Unavailable Scordo, M Mavis PA Unavailable Unavailable Scordo, M Mavis PA Unavailable Unavailable Scordo, M Mavis PA Unavailable Unavailable Scordo, M Mavis PA Unavailable Unavailable Scordo, M Mavis PA Unavailable Unavailable Scordo, M Mavis PA Unavailable Unavailable Scordo, M Mavis PA Unavailable Unavailable Scordo, M Mavis PA Unavailable Unavailable Scordo, M Mavis PA Unavailable Unavailable Scordo, M Mavis PA Unavailable Unavailable Scordo, M Mavis PA Unavailable Unavailable Scordo, M Mavis PA Unavailable Unavailable Scordo, M Mavis PA Unavailable Unavailable Scordo, M Mavis PA Unavailable Unavailable Scordo, M Mavis PA Unavailable Unavailable Scordo, M Mavis PA Unavailable Unavailable Scordo, M Mavis PA Unavailable Unavailable Scordo, M Mavis PA Unavailable Unavailable Scordo, M Mavis PA Unavailable Unavailable Scordo, M Mavis PA Unavailable Unavailable Scordo, M Mavis PA Unavailable Unavailable Scordo, M Mavis PA Unavailable Unavailable Scordo, M Mavis PA Unavailable Unavailable Scordo, M Mavis PA Unavailable Unavailable Scordo, M Mavis PA Unavailable Unavailable Scordo, M Mavis PA Unavailable Unavailable Scordo, M Mavis PA Unavailable Unavailable Scordo, M Mavis PA Unavailable Unavailable Scordo, M Mavis PA Unavailable Unavailable Scordo, M Mavis PA Unavailable Unavailable Scordo, M Mavis PA Unavailable Unavailable Scordo, M Mavis PA Unavailable Unavailable Scordo, M Mavis PA Unavailable Unavailable Pleskach, Claudine SENIOR IT SECURITY ANALYST Unavailable Unavailable Pleskach, Claudine SENIOR IT SECURITY ANALYST Unavailable Unavailable Pleskach, Claudine SENIOR IT SECURITY ANALYST Unavailable Unavailable Pleskach, Claudine SENIOR IT SECURITY ANALYST Unavailable Unavailable Pleskach, Claudine SENIOR IT SECURITY ANALYST Unavailable Unavailable Pleskach, Claudine SENIOR IT SECURITY ANALYST Unavailable Unavailable Pleskach, Claudine SENIOR IT SECURITY ANALYST Unavailable Unavailable Pleskach, Claudine SENIOR IT SECURITY ANALYST Unavailable Unavailable Pleskach, Claudine SENIOR IT SECURITY ANALYST Unavailable Unavailable Pleskach, Claudine SENIOR IT SECURITY ANALYST Unavailable Unavailable Pleskach, Claudine SENIOR IT SECURITY ANALYST Unavailable Unavailable Pleskach, Claudine SENIOR IT SECURITY ANALYST Unavailable Unavailable Pleskach, Claudine SENIOR IT SECURITY ANALYST Unavailable Unavailable Pleskach, Claudine SENIOR IT SECURITY ANALYST Unavailable Unavailable Pleskach, Claudine SENIOR IT SECURITY ANALYST Unavailable Unavailable Pleskach, Claudine SENIOR IT SECURITY ANALYST Unavailable Unavailable Pleskach, Claudine SENIOR IT SECURITY ANALYST Unavailable Unavailable Pleskach, Claudine SENIOR IT SECURITY ANALYST Unavailable Unavailable Pleskach, Claudine SENIOR IT SECURITY ANALYST Unavailable Unavailable Pleskach, Claudine SENIOR IT SECURITY ANALYST Unavailable Unavailable Pleskach, Claudine SENIOR IT SECURITY ANALYST Unavailable Unavailable Pleskach, Claudine SENIOR IT SECURITY ANALYST Unavailable Unavailable Pleskach, Claudine SENIOR IT SECURITY ANALYST Unavailable Unavailable Pleskach, Claudine SENIOR IT SECURITY ANALYST Unavailable Unavailable Pleskach, Claudine SENIOR IT SECURITY ANALYST Unavailable Unavailable Pleskach, Claudine SENIOR IT SECURITY ANALYST Unavailable Unavailable Pleskach, Claudine SENIOR IT SECURITY ANALYST Unavailable Unavailable Pleskach, Claudine SENIOR IT SECURITY ANALYST Unavailable Unavailable Pleskach, Claudine SENIOR IT SECURITY ANALYST Unavailable Unavailable ALEC A YAMILA PA Unavailable Unavailable ALEC A YAMILA PA Unavailable Unavailable LETTELIZABETH A YAMILA PA Unavailable Unavailable LETTIERE, A YAMILA PA Unavailable Unavailable LETTIERE, A YAMILA PA Unavailable Unavailable LETTIERE, A YAMILA PA Unavailable Unavailable LETTIERE, A YAMILA PA Unavailable Unavailable LETTIERE, A YAMILA PA Unavailable Unavailable LETTIERE, A YAMILA PA Unavailable Unavailable LETTIERE, A YAMILA PA Unavailable Unavailable LETTIERE, A YAMILA PA Unavailable Unavailable LETTIERE, A YAMILA PA Unavailable Unavailable LETTIERE, A YAMILA PA Unavailable Unavailable LETTIERE, A YAMILA PA Unavailable Unavailable LETTIERE, A YAMILA PA Unavailable Unavailable LETTIERE, A YAMILA PA Unavailable Unavailable LETTIERE, A YAMILA PA Unavailable Unavailable LETTIERE, A YAMILA PA Unavailable Unavailable LETTIERE, A YAMILA PA Unavailable Unavailable LETTIERE, A YAMILA PA Unavailable Unavailable LETTIERE, A YAMILA PA Unavailable Unavailable LETTIERE, A YAMILA PA Unavailable Unavailable LETTIERE, A YAMILA PA Unavailable Unavailable LETTIERE, A YAMILA PA Unavailable Unavailable LETTIERE, A YAMILA PA Unavailable Unavailable LETTIERE, A YAMILA PA Unavailable Unavailable LETTIERE, A YAMILA PA Unavailable Unavailable LETTIERE, A YAMILA PA Unavailable Unavailable LETTIERE, A YAMILA PA Unavailable Unavailable Re-disclosure Warning The records that you are about to access may contain information from federally-assisted alcohol or drug abuse programs. If such information is present, then the following federally mandated warning applies: This information has been disclosed to you from records protected by federal confidentiality rules (42 CFR part 2). The federal rules prohibit you from making any further disclosure of this information unless further disclosure is expressly permitted by the written consent of the person to whom it pertains or as otherwise permitted by 42 CFR part 2. A general authorization for the release of medical or other information is NOT sufficient for this purpose. The Federal rules restrict any use of the information to criminally investigate or prosecute any alcohol or drug abuse patient.The records that you are about to access may contain highly sensitive health information, the redisclosure of which is protected by Article 27-F of the [facility] Public Health law. If you continue you may have access to information: Regarding HIV / AIDS; Provided by facilities licensed or operated by the [facility] Office of Mental Health; or Provided by the [facility] Office for People With Developmental Disabilities. If such information is present, then the following [facility] mandated warning applies: This information has been disclosed to you from confidential records which are protected by state law. State law prohibits you from making any further disclosure of this information without the specific written consent of the person to whom it pertains, or as otherwise permitted by law. Any unauthorized further disclosure in violation of state law may result in a fine or correction sentence or both. A general authorization for the release of medical or other information is NOT sufficient authorization for further disc losure. Family History Family Member Name Family Member Gender Family Member Status Date o f Status Description Data Source(s) Unknown Unknown Problem [facility] ([facility] Unknown Male Problem [facility] ([facility] ) Encounters Encounter Providers Location Date Indications Data Source(s ) Outpatient Attender: Claudine Collier [facility] Main Office 04/26/2020 0 7:00:00 AM EST [facility] ([facility] Outpatient [address] [facility] [id number] 04/08/2020 12:00:00 AM EST eCW1 ([facility]) Outpatient Attender: Mavis PATEL Main Office 10/15/2019 07:20:00 AM EDT [facility] ([facility] Unknown [address] [place] [id number] 10/06/2019 12:00:00 AM EDT eCW1 ([facility]) Outpatient Attender: Mavis PATEL Main Office 06/04/2019 06:30:00 AM EST [facility] ([facility] Outpatient Attender: Mavis PATEL Main Office 05/15/2019 10:15:00 AM EST [facility] ([facility] Outpatient Attender: YAMILA junior 05/08/2019 05:50:00 PM EST [facility] ([facility]) Outpatient Attender: Mavis PATEL Main Office 04/28/2019 06:15:00 AM EST [facility] ([facility] [address] [place] [phone] 04/23/2019 12:00:00 AM EST eCW1 ([facility]) [facility] [place] [address] 03/23/2019 12:00:00 AM EST eCW1 ([facility]) Immunizations Vaccine Date Status Description Data Source(s) New in 2012. IIV4 01/19/2020 04:18:00 PM EDT completed [facility] ([facility] INFLUENZA VIRUS VACCINE QUADRIVALENT (6 MOS AN D UP) 01/19/2020 12:00:00 AM EDT completed [facility] Medications Medication Brand Name Start Date Product Form Dose Route Admi nistrative Instructions Pharmacy Instructions Status Indications Reaction Description Data Source(s) 17.5-3.13-1.6 gram 05/20/2020 12:00:00 AM EST recon soln 354 DIRECTED DIRECTED SOLD: 05/22/2020 [facility] 100 mg 04/05/2020 12:00:00 AM EST tablet 6 TAKE ONE TABLET BY MOUTH EVERY DAY NEEDED TAKE ONE TABLET BY MOUTH EVERY DAY NEEDED SOLD: 04/08/2020 [facility] 100 mg 04/05/2020 12:00:00 AM EST tablet 6 TAKE ONE TABLET BY MOUTH EVERY DAY NEEDED TAKE ONE TABLET BY MOUTH EVERY DAY NEEDED SOLD: 05/08/2020 [facility] 2.5 mg 04/04/2020 12:00:00 AM EST tablet 180 TAKE ONE TABLET BY MOUTH TWICE A DAY TAKE ONE TABLET BY MOUTH TWICE A DAY SOLD: 04/08/2020 [facility] 5 mg 03/15/2020 12:00:00 AM EST tablet 90 TAKE ONE TABLET BY MOUTH EVERY DAY FOR BLOOD PRESSURE TAKE ONE TABLET BY MOUTH EVERY DAY FOR BLOOD PRESSURE SOLD: 03/16/2020 [facility] Hydrochlorothiazide 25 MG / Losartan Potassium 100 MG Oral Tablet 100-25 mg LOSARTAN POTASSIUM/HYDROCHLOROTHIAZIDE 03/15/2020 12:00:00 AM EST tablet 9 0 TAKE ONE TABLET BY MOUTH EVERY DAY TAKE ONE TABLET BY MOUTH EVERY DAY SOLD: 03/16/2020 [facility] Amlodipine 5 MG Oral Tablet Amlodipine Besylate 03/14/2020 12:00:00 A M EST ORAL active [facility] ([facility] Hydrochlorothiazide 25 MG / Losartan Potassium 100 MG Oral Tablet Losartan Potassium/Hydrochlorothiazide 03/14/2020 12:00:00 AM EST ORAL active [facility] ([facility] 200 mg 09/05/2019 12:00:00 AM EDT tablet extended release 24 hr 90 TAKE ONE TABLET BY MOUTH EVERY DAY TAKE ONE TABLET BY MOUTH EVERY DAY SOLD: 09/08/2019 [facility] 200 mg 09/05/2019 12:00:00 AM EDT tablet extended release 24 hr 90 TAKE ONE TABLET BY MOUTH EVERY DAY TAKE ONE TABLET BY MOUTH EVERY DAY SOLD: 12/09/2019 [facility] 200 mg 09/05/2019 12:00:00 AM EDT tablet extended release 24 hr 90 TAKE ONE TABLET BY MOUTH EVERY DAY TAKE ONE TABLET BY MOUTH EVERY DAY SOLD: 03/08/2020 [facility] 40 mg 07/09/2019 12:00:00 AM EDT tablet 90 TAKE ONE TABLET BY MOUTH EVERY DAY TAKE ONE TABLET BY MOUTH EVERY DAY SOLD: 07/09/2019 [facility] 40 mg 07/09/2019 12:00:00 AM EDT tablet 75 TAKE ONE TABLET BY MOUTH EVERY DAY TAKE ONE TABLET BY MOUTH EVERY DAY SOLD: 10/01/2019 [facility] 40 mg 07/09/2019 12:00:00 AM EDT tablet 90 TAKE ONE TABLET BY MOUTH EVERY DAY TAKE ONE TABLET BY MOUTH EVERY DAY SOLD: 12/11/2019 [facility] 40 mg 07/09/2019 12:00:00 AM EDT tablet 90 TAKE ONE TABLET BY MOUTH EVERY DAY TAKE ONE TABLET BY MOUTH EVERY DAY SOLD: 03/08/2020 [facility] 5 mg 06/03/2019 12:00:00 AM EST tablet 180 TAKE ONE TABLET BY MOUTH TWICE A DAY TAKE ONE TABLET BY MOUTH TWICE A DAY SOLD: 02/29/2020 [facility] 5 mg 06/03/2019 12:00:00 AM EST tablet 180 TAKE ONE TABLET BY MOUTH TWICE A DAY TAKE ONE TABLET BY MOUTH TWICE A DAY SOLD: 06/04/2019 [facility] 5 mg 06/03/2019 12:00:00 AM EST tablet 180 TAKE ONE TABLET BY MOUTH TWICE A DAY TAKE ONE TABLET BY MOUTH TWICE A DAY SOLD: 11/30/2019 [facility] 5 mg 06/03/2019 12:00:00 AM EST tablet 180 TAKE ONE TABLET BY MOUTH TWICE A DAY TAKE ONE TABLET BY MOUTH TWICE A DAY SOLD: 09/02/2019 [facility] 5 mg 05/11/2019 12:00:00 AM EST tablet 60 TAKE TWO TABLETS BY MOUTH TWICE A DAY FOR 6 DAYS THEN 1 TWO TIMES A DAY TAKE TWO TABLETS BY MOUTH TWICE A DAY FO R 6 DAYS THEN 1 TWO TIMES A DAY SOLD: 05/11/2019 [facility] apixaban 5 MG Oral Tablet [Eliquis] Eliquis ORAL a ctive [facility] ([facility] Indomethacin 25 MG Oral Capsule Indomethacin 05/11/2019 12:00:00 AM EST completed [facility] ([facility] 100 mg 03/17/2019 12:00:00 AM EST tablet 6 TAKE ONE TABLET BY MOUTH EVERY DAY NEEDED TAKE ONE TABLET BY MOUTH EVERY DAY NEEDED SOLD: 09/02/2019 [facility] 100 mg 03/17/2019 12:00:00 AM EST tablet 6 TAKE ONE TABLET BY MOUTH EVERY DAY NEEDED TAKE ONE TABLET BY MOUTH EVERY DAY NEEDED SOLD: 07/02/2019 [facility] 100 mg 03/17/2019 12:00:00 AM EST tablet 6 TAKE ONE TABLET BY MOUTH EVERY DAY NEEDED TAKE ONE TABLET BY MOUTH EVERY DAY NEEDED SOLD: 04/27/2019 [facility] 100 mg 03/17/2019 12:00:00 AM EST tablet 6 TAKE ONE TABLET BY MOUTH EVERY DAY NEEDED TAKE ONE TABLET BY MOUTH EVERY DAY NEEDED SOLD: 11/30/2019 [facility] 100 mg 03/17/2019 12:00:00 AM EST tablet 6 TAKE ONE TABLET BY MOUTH EVERY DAY NEEDED TAKE ONE TABLET BY MOUTH EVERY DAY NEEDED SOLD: 01/05/2020 [facility] 100 mg 03/17/2019 12:00:00 AM EST tablet 6 TAKE ONE TABLET BY MOUTH EVERY DAY NEEDED TAKE ONE TABLET BY MOUTH EVERY DAY NEEDED SOLD: 03/08/2020 [facility] 100 mg 03/17/2019 12:00:00 AM EST tablet 6 TAKE ONE TABLET BY MOUTH EVERY DAY NEEDED TAKE ONE TABLET BY MOUTH EVERY DAY NEEDED SOLD: 08/05/2019 [facility] 100 mg 03/17/2019 12:00:00 AM EST tablet 6 TAKE ONE TABLET BY MOUTH EVERY DAY NEEDED TAKE ONE TABLET BY MOUTH EVERY DAY NEEDED SOLD: 11/02/2019 [facility] 100 mg 03/17/2019 12:00:00 AM EST tablet 6 TAKE ONE TABLET BY MOUTH EVERY DAY NEEDED TAKE ONE TABLET BY MOUTH EVERY DAY NEEDED SOLD: 05/29/2019 [facility] 100 mg 03/17/2019 12:00:00 AM EST tablet 6 TAKE ONE TABLET BY MOUTH EVERY DAY NEEDED TAKE ONE TABLET BY MOUTH EVERY DAY NEEDED SOLD: 02/08/2020 [facility] 100 mg 03/17/2019 12:00:00 AM EST tablet 6 TAKE ONE TABLET BY MOUTH EVERY DAY NEEDED TAKE ONE TABLET BY MOUTH EVERY DAY NEEDED SOLD: 10/01/2019 [facility] Amlodipine 5 MG / Hydrochlorothiazide 25 MG / Olmesartan medoxomil 40 MG Oral Tablet 40-5-25 mg OLMESARTAN MEDOXOMIL/AMLODIPINE BESYLATE/HYDROCHLOROTH IAZIDE 12/24/2018 12:00:00 AM EDT tablet 90 TAKE ONE TABLE T BY MOUTH EVERY DAY TAKE ONE TABLET BY MOUTH EVERY DAY SOLD: 12/09/2019 [facility] Amlodipine 5 MG / Hydrochlorothiazide 25 MG / Olmesartan medoxomil 40 MG Oral Tablet 40-5-25 mg OLMESARTAN MEDOXOMIL/AMLODIPINE BESYLATE/HYDROCHLOROTH IAZIDE 12/24/2018 12:00:00 AM EDT tablet 90 TAKE ONE TABLE T BY MOUTH EVERY DAY TAKE ONE TABLET BY MOUTH EVERY DAY SOLD: 06/17/2019 [facility] Amlodipine 5 MG / Hydrochlorothiazide 25 MG / Olmesartan medoxomil 40 MG Oral Tablet 40-5-25 mg OLMESARTAN MEDOXOMIL/AMLODIPINE BESYLATE/HYDROCHLOROTH IAZIDE 12/24/2018 12:00:00 AM EDT tablet 90 TAKE ONE TABLE T BY MOUTH EVERY DAY TAKE ONE TABLET BY MOUTH EVERY DAY SOLD: 09/08/2019 [facility] 200 mg 10/22/2018 12:00:00 AM EDT tablet extended release 24 hr 90 TAKE ONE TABLET BY MOUTH EVERY DAY FOR BLOOD PRESSURE TAKE ONE TABLET BY MOUTH EVERY DAY FOR BLOOD PRESSURE SOLD: 06/17/2019 [facility] Insurance Providers Payer name Policy type / Coverage type Policy ID Covered democrat ID Covered democrat's relationship to brand Policy Brand Plan Information [facility] [employer] [id number] SP [id number] UNITED [employer] [id number] SP [id number] [employer] [place] [id number] SP [id number] UNITED [employer]CARE [id number] SP [id number] Emp/[employer] Commercial [id number] Self [id number] ANSI-Commercial [id number] [employer] [place] [employer] [id number] SP [id number] Emp/[employer] Commercial [id number] Self [id number] ANSI-Commercial [id number] Emp/[employer] Commercial [id number] Self [id number] Emp/[employer] Commercial [id number] Self [id number] Emp/[employer] Commercial [id number] Self [id number] UNITED [employer]ARE [id number] SP [id number] [employer] [place] [id number] SP [id number] [employer]ARE [id number] SP [id number] Emp/[employer] Commercial [id number] Self [id number] Emp/[employer] Commercial [id number] Self [id number] [facility] () Workers Compensation [id number] Self [id number] [facility] () Workers Compensation [id number] Self [id number] [employer] [place] O [id number] S [id number] Emp/[employer] Commercial Self Problems, Conditions, and Diagnoses Code Display Name Description Problem Type Effective Dates Data Source(s) [id number] Essential hypertension Essential hypertension Problem 05/12/2019 12:00:00 AM EST [facility] ([facility], ) Surgeries/Procedures Procedure Description Date Indications Data Source(s) Arterial Infusion Thrombolysis Other Than Carotid 05/09/2019 12:00:00 AM EST [facility] ([facility], ) ANGIOGRAPHY PULMONARY BILATERAL SLCTV RS&I 05/09/2019 12:00:00 AM EST [facility] ([facility], ) Results ID Date Data Source [id number] 05/20/2020 12:00:00 PM EST [facility] Name Value Range Interpretation Code Description Data Mary rce(s) Supporting Document(s) SARS coronavirus 2 RNA Not Detected [facility] This lab was ordered by [facility] and reported by [facility]. ID Date Data Source [id number] 04/06/2020 10:15:00 AM EST [facility] ([facility] Name Value Range Interpretation Code Description Data Mary rce(s) Supporting Document(s) Hemoglobin A1c/Hemoglobin.total in Blood 5.1 % [facility] ([facility] <content>REFERENCE RANGES:</content><br/ ><content></content>
<content><=5.6% NORMAL</content>
<content>5.7-6.4% SUGGESTS IMPAIRED GLUCOSE METABOLISM/PREDIABETIC</content>
<content>>= 6.5% ABNORMAL</content>
<content></content> Estimated Average Glucose 100 mg/dL 60-110 [facility] ([facility] ID Date Data Source [id number] 04/06/2020 10:15:00 AM EST [facility] ([facility] Name Value Range Interpretation Code Description Data [facility] rce(s) Supporting Document(s) Glucose, Fasting 101 mg/dL 70-100 [facility] ([facility] Blood Urea Nitrogen 21 mg/dL 7-18 [facility] ([facility] Creatinine For GFR 1.24 mg/dL 0.70-1.30 [facility] ([facility] Sodium Level 142 meq/L 136-145 [facility] ([facility] Potassium Serum 4.0 meq/L 3.5-5.1 [facility] ([facility] Glomerular Filtration Rate Laboratory test result [facility] ([facility] <content>Units are mL/min/1.73 m2</content>
<content></content>
<content>Chronic Kidney Disease Staging per NKF:</content>
<content></content>
<content>Stage I & II GFR >=60 Normal to Mildly Decreased</content>
<content>Stage III GFR 30- 59 Moderately Decreased</content>
<content>Stage IV GFR 15-29 Severely Decreased</content>
<content>Stage V GFR <15 Very Little GFR Left</content>
<content>ESRD GFR <15 on DIALYSIS SOCIAL WORKER</content>
<content></content> Chloride Level 109 meq/L 98-107 [facility] ([facility] Carbon Dioxide Level 31 meq/L 21-32 [facility] ([facility] Anion Gap 2 meq/L 8-16 [facility] ([facility] Ast/Sgot 15 U/L 7-37 [facility] ([facility] Alt/SGPT 30 U/L 12-78 [facility] ([facility] Calcium Level 8.9 mg/dL 8.5-10.1 [facility] ([facility] Total Protein 6.3 GM/DL 6.4-8.2 [facility] ([facility] Alkaline Phosphatase 50 U/L 45-117 [facility] ([facility] Bilirubin,Total 0.5 mg/dL 0.2-1.0 [facility] ([facility] Albumin/Globulin Ratio 1.3 [facility] ([facility] Albumin 3.6 GM/DL 3.2-5.2 [facility] ([facility] ID Date Data Source [id number] 04/06/2020 10:15:00 AM EST [facility] ([facility] Name Value Range Interpretation Code Description Data Mray rce(s) Supporting Document(s) White Blood Count 5.2 10 4.0-10.0 [facility] ([facility] Hematocrit 46.4 % 42.0-52.0 [facility] ([facility] Hemoglobin 15.3 g/dL 13.5-17.5 [facility] ([facility] Red Blood Count 5.05 10 4.30-6.10 [facility] ([facility] Mean Corpuscular Volume 91.9 fl 80.0-96.0 M [facility] ([facility] Mean Corpuscular Hemoglobin 30.3 pg 27.0-33.0 [facility] ([facility] Mean Corpuscular HGB Conc 33.0 g/dL 32.0-36.5 [facility] ([facility] Platelet Count, Automated 147 10 150-450 [facility] ([facility] Red Cell Distribution Width 12.2 % 11.5-14.5 [facility] ([facility] Neutrophils % 61.5 % 36.0-66.0 [facility] ([facility] [place] % 9.6 % 0.0-5.0 [facility] ([facility] Lymph % 25.8 % 24.0-44.0 [facility] ([facility] Baso % 0.6 % 0.0-1.0 [facility] ([facility] Immature Granulocyte % 0.2 % 0-3.0 [facility] ([facility] Eos % 2.3 % 0.0-3.0 [facility] ([facility] Nucleated Red Blood Cell % 0.0 % 0-0 [facility] ([facility] Neutrophils # 3.2 10 1.5-8.5 [facility] ([facility] Lymph # 1.4 10 1.5-5.0 [facility] ([facility] Baso # 0.0 10 0.0-0.2 [facility] ([facility] [place] # 0.5 10 0.0-0.8 [facility] ([facility] Eos # 0.1 10 0.0-0.5 [facility] ([facility] ID Date Data Source [id number] 04/04/2020 10:29:00 AM EST [facility] ([facility] Name Value Range Interpretation Code Description Data Mary rce(s) Supporting Document(s) Glucose, Fasting 110 mg/dL 70-100 [facility] ([facility] Creatinine For GFR 1.18 mg/dL 0.70-1.30 [facility] ([facility] Blood Urea Nitrogen 21 mg/dL 7-18 [facility] ([facility] Sodium Level 141 meq/L 136-145 [facility] ([facility] Glomerular Filtration Rate Laboratory test result [facility] ([facility] <content>Units are mL/min/1.73 m2</content>
<content></content>
<content>Chronic Kidney Disease Staging per NKF:</content>
<content></content>
<content>Stage I & II GFR >=60 Normal to Mildly Decreased</content>
<content>Stage III GFR 30- 59 Moderately Decreased</content>
<content>Stage IV GFR 15-29 Severely Decreased</content>
<content>Stage V GFR <15 Very Little GFR Left</content>
<content>ESRD GFR <15 on DIALYSIS SOCIAL WORKER</content>
<content></content> Chloride Level 108 meq/L 98-107 [facility] ([facility] Potassium Serum 3.8 meq/L 3.5-5.1 [facility] ([facility] Anion Gap 4 meq/L 8-16 [facility] ([facility] Carbon Dioxide Level 29 meq/L 21-32 [facility] ([facility] Ast/Sgot 20 U/L 7-37 [facility] Calcium Level 9.0 mg/dL 8.5-10.1 [facility] ([facility] Alt/SGPT 36 U/L 12-78 [facility] Alkaline Phosphatase 49 U/L 45-117 [facility] ([facility] Bilirubin,Total 0.6 mg/dL 0.2-1.0 [facility] ([facility] Total Protein 6.6 GM/DL 6.4-8.2 [facility] ([facility] Albumin 3.4 GM/DL 3.2-5.2 [facility] ([facility] Albumin/Globulin Ratio 1.1 [facility] ([facility] ID Date Data Source [id number] 04/04/2020 10:29:00 AM EST [facility] ([facility] Name Value Range Interpretation Code Description Data Mary e(s) Supporting Document(s) Red Blood Count 4.98 10 4.30-6.10 [facility] ([facility] White Blood Count 5.5 10 4.0-10.0 [facility] ([facility] Hematocrit 44.9 % 42.0-52.0 [facility] Hemoglobin 14.6 g/dL 13.5-17.5 [facility] Mean Corpuscular Volume 90.2 fl 80.0-96.0 M [facility] ([facility] Mean Corpuscular Hemoglobin 29.3 pg 27.0-33.0 [facility] ([facility] Red Cell Distribution Width 12.1 % 11.5-14.5 [facility] ([facility] Mean Corpuscular HGB Conc 32.5 g/dL 32.0-36.5 [facility] ([facility] Neutrophils % 61.1 % 36.0-66.0 [facility] ([facility] Platelet Count, Automated 156 10 150-450 [facility] ([facility] [place] % 8.6 % 0.0-5.0 [facility] ([facility] Lymph % 27.1 % 24.0-44.0 [facility] ([facility] Baso % 0.4 % 0.0-1.0 [facility] ([facility] Eos % 2.6 % 0.0-3.0 [facility] ([facility] Nucleated Red Blood Cell % 0.0 % 0-0 [facility] ([facility] Immature Granulocyte % 0.2 % 0-3.0 [facility] ([facility] Neutrophils # 3.3 10 1.5-8.5 [facility] ([facility] Lymph # 1.5 10 1.5-5.0 [facility] ([facility] Eos # 0.1 10 0.0-0.5 [facility] ([facility] [place] # 0.5 10 0.0-0.8 [facility] ([facility] Baso # 0.0 10 0.0-0.2 [facility] ([facility] ID Date Data Source [id number] 10/02/2019 08:45:00 AM EDT [facility] ([facility] Name Value Range Interpretation Code Description Data Mary rce(s) Supporting Document(s) Urate [Mass/volume] in Serum or Plasma 5.4 mg/dL 3.5-7.2 [facility] ([facility] ID Date Data Source [id number] 10/02/2019 08:45:00 AM EDT [facility] ([facility] Name Value Range Interpretation Code Description Data Mary rce(s) Supporting Document(s) Triglycerides Level 87 mg/dL [facility] ([facility] Cholesterol Level 139 mg/dL [facility] ([facility] Non-HDL-C 86 mg/dL [facility] ([facility] HDL Cholesterol 53 mg/dL [facility] ([facility] LDL Cholesterol 69 mg/dL [facility] ([facility] Cholesterol Risk Ratio 2.622 [facility] ([facility] ID Date Data Source [id number] 10/02/2019 08:45:00 AM EDT [facility] ([facility] Name Value Range Interpretation Code Description Data Mary rce(s) Supporting Document(s) Blood Urea Nitrogen 16 mg/dL 7-18 [facility] ([facility] Glucose, Fasting 89 mg/dL 70-100 [facility] ([facility] Creatinine For GFR 0.93 mg/dL 0.70-1.30 [facility] ([facility] Glomerular Filtration Rate Laboratory test result [facility] ([facility] <content>Units are mL/min/1.73 m2</content>
<content></content>
<content>Chronic Kidney Disease Staging per NK[facility]:</content>
<content></content>
<content>Stage I & II GFR >=60 Normal to Mildly Decreased</content>
<content>Stage III GFR 30- 59 Moderately Decreased</content>
<content>Stage IV GFR 15-29 Severely Decreased</content>
<content>Stage V GFR <15 Very Little GFR Left</content>
<content>ESRD GFR <15 on DIALYSIS SOCIAL WORKER</content>
<content></content> Sodium Level 142 meq/L 136-145 [facility] ([facility] Potassium Serum 3.9 meq/L 3.5-5.1 [facility] ([facility] Chloride Level 106 meq/L 98-107 [facility] ([facility] Carbon Dioxide Level 30 meq/L 21-32 [facility] ([facility] Anion Gap 6 meq/L 8-16 [facility] ([facility] Calcium Level 8.8 mg/dL 8.5-10.1 [facility] ([facility] Ast/Sgot 22 U/L 7-37 [facility] ([facility] Alt/SGPT 36 U/L 12-78 [facility] ([facility] Bilirubin,Total 0.7 mg/dL 0.2-1.0 [facility] ([facility] Alkaline Phosphatase 53 U/L 45-117 [facility] ([facility] Total Protein 6.5 GM/DL 6.4-8.2 [facility] ([facility] Albumin 3.6 GM/DL 3.2-5.2 [facility] ([facility] Albumin/Globulin Ratio 1.2 [facility] ([facility] ID Date Data Source [id number] 10/02/2019 08:45:00 AM EDT [facility] ([facility] Name Value Range Interpretation Code Description Data Mary rce(s) Supporting Document(s) Hemoglobin A1c 5.6 % [facility] ([facility] REFERENCE RANGES: 4.5-5.6% NORMAL 5.7-6.4% SUGGESTS IMPAIRED GLUCOSE META BOLISM >= 6.5% ABNORMAL Estimated Average Glucose 114 mg/dL 60-110 [facility] ([facility] ID Date Data Source [id number] 07/01/2019 10:20:00 AM EDT [facility] ([facility] Name Value Range Interpretation Code Description Data Mary rce(s) Supporting Document(s) Cardiolipin Iga Antibody Laboratory test result 0-11 [facility] ([facility] <content>Negative: <12</con tent>
<content>Indeterminate: 12 - 20</content>
<content>Low-Med Positive: >20 - 80</content>
<content>High Positive: >80</content>
<content></content> Cardiolipin Igg Antibody Laboratory test result 0-14 [facility] ([facility] <content>Negative: <15</con tent>
<content>Indeterminate: 15 - 20</content>
<content>Low-Med Positive: >20 - 80</content>
<content>High Positive: >80</content>
<content></content> Cardiolipin Igm Antibody Laboratory test result 0-12 [facility] ([facility] <content>Negative: <13</con tent>
<content>Indeterminate: 13 - 20</content>
<content>Low-Med Positive: >20 - 80</content>
<content>High Positive: >80</content>
<content></content> ID Date Data Source [id number] 07/01/2019 10:20:00 AM EDT [facility] ([facility] Name Value Range Interpretation Code Description Data Mary rce(s) Supporting Document(s) Laboratory test finding (navigational concept) 13 MPSIgM 0-25 [facility] ([facility] Laboratory test finding (navigational concept) 4 GPSIgG 0-11 [facility] ([facility] Laboratory test finding (navigational concept) 2 APSIgA 0-20 [facility] ([facility] ID Date Data Source [id number] 07/01/2019 10:20:00 AM EDT [facility] ([facility] Name Value Range Interpretation Code Description Data Mary rce(s) Supporting Document(s) Laboratory test finding (navigational concept) Laboratory test result 0-20 [facility] ([facility] Result Units: GPI IgG units . The reference interval reflects a 3SD or 99th percentile interval, which is thought to represent a potentially clinically significant result in accordance with the International Consensus Statement on the classification criteria for definitive antiphospholipid syndrome (APS). J Thromb Haem 2006;4:295-306. Laboratory test finding (navigational concept) Laboratory test result 0-32 [facility] ([facility] Result Units: GPI IgM units . The reference interval reflects a 3SD or 99th percentile interval, which is thought to represent a potentially clinically significant result in accordance with the International Consensus Statement on the classification criteria for definitive antiphospholipid syndrome (APS). J Thromb Haem 2006;4:295-306. Performed at: [facility] [address] [id number] [employer]: Maria Luisa Abreu MD, Phone: [phone] Performed at: [facility] [address] [id number] [employer]: Milka Bethea MD, Phone: [phone] Laboratory test finding (navigational concept) Laboratory test result 0-25 [facility] ([facility] Result Units: GPI IgA units . The reference interval reflects a 3SD or 99th percentile interval, which is thought to represent a potentially clinically significant result in accordance with the International Consensus Statement on the classification criteria for definitive antiphospholipid syndrome (APS). J Thromb Haem 2006;4:295-306. ID Date Data Source [id number] 05/08/2019 10:00:00 PM EST [facility] ([facility] Name Value Range Interpretation Code Description Data Mary rce(s) Supporting Document(s) Prothrombin Time 13.7 s 11.8-14.0 [facility] ([facility] Partial Thromboplastin Time 30.4 s 25.0-38.4 [facility] ([facility] Inr 1.08 [facility] ([facility] THERAPUTIC HUMAN INR VALUES INDICATIONS NORMAL RANGES PROPHYLAXIS/TREATMENT OF: VENOUS THROMBOSIS 2.0-3.0 PULMONARY EMBOLISM 2.0-3.0 PREVENTION OF SYSTEMIC EMBOLISM FROM: TISSUE HEART VALVES 2.0-3.0 ACUTE MYOCARDIAL INFARCTION 2.0-3.0 VALVULAR HEART DISEASE 2.0-3.0 ATRIAL FIBRILLATION 2.0-3.0 MECHANICAL VALVES(HIGH RISK) 2.5-3.5 RECURRENT MYOCARDIAL INFARCTION 2.5-3.5 ID Date Data Source [id number] 05/08/2019 09:03:00 PM EST [facility] ([facility] Name Value Range Interpretation Code Description Data [facility] rce(s) Supporting Document(s) Laboratory test finding (navigational concept) 7.451 units 7.350-7.45 0 [facility] ([facility] Laboratory test finding (navigational concept) 29.9 MMHG 35.0-45.0 [facility] ([facility] Laboratory test finding (navigational concept) 20.9 mmol/L 22.0-26.0 [facility] ([facility] Laboratory test finding (navigational concept) 53.0 MMHG 80-105 [facility] ([facility] Laboratory test finding (navigational concept) -3.0 mmol/L [facility] ([facility] Laboratory test finding (navigational concept) 22.0 mmol/L 23.0-27.0 [facility] ([facility] Laboratory test finding (navigational concept) 89 % 95-98 [facility] ([facility] ID Date Data Source [id number] 05/08/2019 08:20:00 PM EST [facility] ([facility] Name Value Range Interpretation Code Description Data Mary rce(s) Supporting Document(s) Natriuretic peptide.B prohormone N-Terminal [Mass/volu me] in Serum or Plasma 1237 pg/mL [facility] ([facility] ID Date Data Source [id number] 05/08/2019 08:20:00 PM EST [facility] ([facility] Name Value Range Interpretation Code Description Data Mary rce(s) Supporting Document(s) Blood Urea Nitrogen 23 mg/dL 7-18 [facility] ([facility] Creatinine For GFR 1.58 mg/dL 0.70-1.30 [facility] ([facility] Glucose, Fasting 146 mg/dL 70-100 [facility] ([facility] Chloride Level 105 meq/L 98-107 [facility] ([facility] Potassium Serum 4.0 meq/L 3.5-5.1 [facility] ([facility] Sodium Level 140 meq/L 136-145 [facility] ([facility] Glomerular Filtration Rate 48.4 [facility] ([facility] <content>Units are mL/min/1.73 m2</content>
<content></content>
<content>Chronic Kidney Disease Staging per NK[facility]:</content>
<content></content>
<content>Stage I & II GFR >=60 Normal to Mildly Decreased</content>
<content>Stage III GFR 30- 59 Moderately Decreased</content>
<content>Stage IV GFR 15-29 Severely Decreased</content>
<content>Stage V GFR <15 Very Little GFR Left</content>
<content>ESRD GFR <15 on DIALYSIS SOCIAL WORKER</content>
<content></content> Calcium Level 8.9 mg/dL 8.5-10.1 [facility] ([facility] Carbon Dioxide Level 23 meq/L 21-32 [facility] ([facility] Anion Gap 12 meq/L 8-16 [facility] ([facility] ID Date Data Source [id number] 05/08/2019 08:20:00 PM EST [facility] ([facility] Name Value Range Interpretation Code Description Data Mary rce(s) Supporting Document(s) CPK Creatine Phosphokinase 126 U/L 39-308 [facility] ([facility] Troponin I 1.70 ng/mL Above upper panic limits [facility] ([facility] <content>Troponin I Reference Interval f or Siemens [place] LOCI:</content>
<content></content>
<content>99th Percentile= 0.00-0.045 ng/ml</content>
<content></content>
<content>Risk Stratification:</content>
<content><= 0.10 ng/ml Decreased Risk for Adverse Clinical</content>
<content>Events.</content>
<content>0.10-1.50 ng/ml Increased Risk for Adverse Clinical</content>
<content>Events. Evaluation of additional</content>
<content>criterion and/or repeat testing in 2-6</content>
<content>hours is suggested to rule out myocardial</content>
<content>damage.</content>
<content>>= 1.50 ng/ml Indicative of Myocardial Injury.</content>
<content></content> MB/CK Relative Index 3.73 [facility] ([facility] <content>DIAGNOSIS CRITERIA</content>
<content>MMB ng/ml Relative Index (RI)</content>
<content>NON-AMI < or = 5 N/A</content>
<content>LANCASTER ZONE > 5 < or = 4</content>
<content>AMI > 5 > 4</content>
<content></content> CK-MB Value Mass 4.7 ng/mL [facility] ([facility] ID Date Data Source [id number] 05/08/2019 08:20:00 PM EST [facility] ([facility] Name Value Range Interpretation Code Description Data Mary rce(s) Supporting Document(s) White Blood Count 11.2 10 4.0-10.0 [facility] ([facility]an [facility] Hemoglobin 16.0 g/dL 13.5-17.5 [facility] ([facility] Mean Corpuscular Volume 90.1 fl 80.0-96.0 M [facility]ENT ([facility] Hematocrit 49.8 % 42.0-52.0 [facility] ([facility] Red Blood Count 5.53 10 4.30-6.10 [facility] ([facility] Red Cell Distribution Width 11.7 % 11.5-14.5 [facility] ([facility] Mean Corpuscular HGB Conc 32.1 g/dL 32.0-36.5 [facility] ([facility] Mean Corpuscular Hemoglobin 28.9 pg 27.0-33.0 [facility] ([facility] A. Dany[facility] Platelet Count, Automated 213 10 150-450 [facility] ([facility] Neutrophils % 79.0 % 36.0-66.0 [facility] ([facility] Lymph % 12.0 % 24.0-44.0 [facility] ([facility] [place] % 7.2 % 0.0-5.0 [facility] ([facility] Eos % 1.1 % 0.0-3.0 [facility] ([facility] Baso % 0.3 % 0.0-1.0 [facility] ([facility] Immature Granulocyte % 0.4 % 0-3.0 [facility] ([facility] Nucleated Red Blood Cell % 0.0 % 0-0 [facility] ([facility] Neutrophils # 8.9 10 1.5-8.5 [facility] ([facility] Lymph # 1.4 10 1.5-5.0 [facility] ([facility] Eos # 0.1 10 0.0-0.5 [facility] ([facility] Baso # 0.0 10 0.0-0.2 [facility] ([facility] [place] # 0.8 10 0.0-0.8 [facility] ([facility] ID Date Data Source PSA MONITOR (HX PROSTATE CA/ABNORMAL PSA) 04/20/2019 12:00:0 0 AM EST eCW1 ([facility]) Name Value Range Interpretation Code Description Data Mary rce(s) Supporting Document(s) 0.13 < 4.00 PROSTATIC SPECIFIC AG MON ITOR eCW1 ([facility]) Procedure Social History Code Duration Value Status Description Data Source(s ) Smoking 04/26/2020 12:00:00 AM EST Patient has never smoked co mpleted Patient has never smoked [facility] ([facility] Smoking 04/08/2020 12:00:00 AM EST Never Smoker completed Never S moker eCW1 ([facility]) Smoking 04/20/2019 12:00:00 AM EST Never Smoker completed Never S moker eCW1 ([facility]) Vital Signs ID Date Data Source UNK Name Value Range Interpretation Code Description Data Source(s) Body surface area Derived from formula 2.21 m2 2.21 m2 [facility] Body weight 103.988 kg 103.988 kg [facility] ([facility]) [place] body weight 166 [lb_av] 166 [lb_av] [facility] T ([facility]) Body mass index (BMI) [Ratio] 32.9 kg/m2 32.9 k g/m2 [facility] ([facility]) Body weight 229.25 [lb_av] 229.25 [lb_av] [facility] T ([facility]) Body height 70 [in_i] 70 [in_i] [facility] ([facility]) 5'10" Heart rate 55 /min 55 /min [facility] ([facility]) Diastolic blood pressure 84 mm[Hg] 84 mm[Hg] [facility] ([facility]) Systolic blood pressure 156 mm[Hg] 156 mm[Hg] M [facility] ([facility]) Body surface area Derived from formula 2.22 m2 2.22 m2 [facility] ([facility]) Body weight 104.328 kg 104.328 kg [facility] ([facility]) [place] body weight 166 [lb_av] 166 [lb_av] [facility] T ([facility]) Body mass index (BMI) [Ratio] 33.0 kg/m2 33.0 k g/m2 [facility] ([facility]) Body weight 230.00 [lb_av] 230.00 [lb_av] [facility] T ([facility], ) Body height 70 [in_i] 70 [in_i] [facility] ([facility]) 5'10" Diastolic blood pressure 80 mm[Hg] 80 mm[Hg] [facility] ([facility]) Systolic blood pressure 150 mm[Hg] 150 mm[Hg] [facility] Body mass index (BMI) [Ratio] 34.2 kg/m2 34.2 k g/m2 [facility] ([facility] [place] body weight 160 [lb_av] 160 [lb_av] [facility] T ([facility] Oxygen saturation in Arterial blood by Pulse oximetry 98 % 98 % [facility] ([facility] Body weight 231.38 [lb_av] 231.38 [lb_av] [facility] T ([facility] Body height 69.0 [in_i] 69.0 [in_i] [facility] ([facility] 5'9" Respiratory rate 16 /min 16 /min [facility] ( [facility] Body temperature 97.0 [degF] 97.0 [degF] [facility] ([facility] Heart rate 70 /min 70 /min [facility] ([facility] Diastolic blood pressure 82 mm[Hg] 82 mm[Hg] [facility] ([facility] recheck Systolic blood pressure 148 mm[Hg] 148 mm[Hg] [facility] recheck Diastolic blood pressure 84 mm[Hg] 84 mm[Hg] [facility] ([facility] Systolic blood pressure 155 mm[Hg] 155 mm[Hg] [facility] Body temperature 96.6 [degF] 96.6 [degF] eCW1 ( [facility]) Respiratory rate 18 /min 18 /min eCW1 ([facility]) Heart rate 58 /min 58 /min eCW1 ([facility]) Body mass index (BMI) [Ratio] 32.71 kg/m2 32.71 kg/m2 eCW1 ([facility]) Body height 70 [in_i] 70 [in_i] eCW1 ([facility]) Body weight 228 [lb_av] 228 [lb_av] eCW1 ([facility]) Body mass index (BMI) [Ratio] 31.8 kg/m2 31.8 k g/m2 [facility] ([facility] [place] body weight 160 [lb_av] 160 [lb_av] MED[facility] T ([facility] Oxygen saturation in Arterial blood by Pulse oximetry 96 % 96 % [facility] ([facility] Body weight 215.19 [lb_av] 215.19 [lb_av] [facility] T ([facility] Body height 69.0 [in_i] 69.0 [in_i] [facility] ([facility] 5'9" Respiratory rate 12 /min 12 /min [facility] ( [facility] Body temperature 97.8 [degF] 97.8 [degF] [facility] ([facility] Heart rate 62 /min 62 /min [facility] ([facility] Diastolic blood pressure 82 mm[Hg] 82 mm[Hg] [facility] ([facility] Systolic blood pressure 139 mm[Hg] 139 mm[Hg] [facility] ([facility] Diastolic blood pressure 80 mm[Hg] 80 mm[Hg] [facility] ([facility] Systolic blood pressure 143 mm[Hg] 143 mm[Hg] [facility] ([facility] Body surface area Derived from formula 2.20 m2 2.20 m2 [facility] ([facility]) Body weight 102.173 kg 102.173 kg [facility] ([facility]) [place] body weight 166 [lb_av] 166 [lb_av] MED[facility] T ([facility]) Body mass index (BMI) [Ratio] 32.3 kg/m2 32.3 k g/m2 [facility] ([facility]) Body weight 225.25 [lb_av] 225.25 [lb_av] MED[facility] T ([facility]) Body height 70 [in_i] 70 [in_i] [facility] ([facility]) 5'10" Body temperature 97.8 [degF] 97.8 [degF] [facility] ([facility]) Diastolic blood pressure 74 mm[Hg] 74 mm[Hg] [facility] ([facility]) Systolic blood pressure 148 mm[Hg] 148 mm[Hg] [facility] ([facility]) Body mass index (BMI) [Ratio] 36.0 kg/m2 36.0 k g/m2 [facility] ([facility] [place] body weight 160 [lb_av] 160 [lb_av] [facility] T ([facility] Oxygen saturation in Arterial blood by Pulse oximetry 99 % 99 % [facility] ([facility] Body weight 244.00 [lb_av] 244.00 [lb_av] [facility] T ([facility] Body height 69.0 [in_i] 69.0 [in_i] [facility] ([facility] 5'9" Respiratory rate 15 /min 15 /min [facility] ( [facility] Body temperature 97.3 [degF] 97.3 [degF] [facility] ([facility] Heart rate 57 /min 57 /min [facility] ([facility] Diastolic blood pressure 77 mm[Hg] 77 mm[Hg] [facility] ([facility] Systolic blood pressure 122 mm[Hg] 122 mm[Hg] [facility] ([facility] Body weight 111.586 kg 111.586 kg [facility] ([facility]) Body mass index (BMI) [Ratio] 35.3 kg/m2 35.3 k g/m2 [facility] ([facility]) Body weight 246.00 [lb_av] 246.00 [lb_av] MED[facility] T ([facility]) Body height 70 [in_i] 70 [in_i] [facility] ([facility]) 5'10" Diastolic blood pressure 82 mm[Hg] 82 mm[Hg] [facility] ([facility]) Systolic blood pressure 122 mm[Hg] 122 mm[Hg] [facility] ([facility]) Body mass index (BMI) [Ratio] 37.1 kg/m2 37.1 k g/m2 [facility] ([facility] Oxygen saturation in Arterial blood by Pulse oximetry 98 % 98 % [facility] ([facility] Body weight 251.00 [lb_av] 251.00 [lb_av] [facility] T ([facility] Body height 69.0 [in_i] 69.0 [in_i] [facility] ([facility] 5'9" Respiratory rate 16 /min 16 /min [facility] ( [facility] Body temperature 97.8 [degF] 97.8 [degF] [facility] ([facility] Heart rate 73 /min 73 /min [facility] ([facility] Diastolic blood pressure 86 mm[Hg] 86 mm[Hg] [facility] ([facility] Systolic blood pressure 125 mm[Hg] 125 mm[Hg] [facility] Body mass index (BMI) [Ratio] 35.4 kg/m2 35.4 k g/m2 [facility] ([facility]) Body height 70 [in_i] 70 [in_i] [facility] ([facility]) 5'10" Body weight 247.00 [lb_av] 247.00 [lb_av] MED[facility] T ([facility]) Body temperature 98.1 [degF] 98.1 [degF] [facility] ([facility]) Oxygen saturation in Arterial blood by Pulse oximetry 93 % 93 % [facility] ([facility]) Heart rate 111 /min 111 /min [facility] ([facility]) Diastolic blood pressure 88 mm[Hg] 88 mm[Hg] [facility] ([facility]) Systolic blood pressure 133 mm[Hg] 133 mm[Hg] [facility] ([facility]) Body mass index (BMI) [Ratio] 38.4 kg/m2 38.4 k g/m2 [facility] ([facility] Oxygen saturation in Arterial blood by Pulse oximetry 96 % 96 % [facility] ([facility] Body weight 260.00 [lb_av] 260.00 [lb_av] [facility] T ([facility] Body height 69.0 [in_i] 69.0 [in_i] [facility] ([facility] 5'9" Respiratory rate 16 /min 16 /min [facility] ( [facility] Body temperature 98.0 [degF] 98.0 [degF] [facility] ([facility] Heart rate 87 /min 87 /min [facility] ([facility] Diastolic blood pressure 87 mm[Hg] 87 mm[Hg] [facility] ([facility] Systolic blood pressure 137 mm[Hg] 137 mm[Hg] M EDENT ([facility] Diastolic blood pressure 78 mm[Hg] 78 mm[Hg] eCW1 ([facility]) Systolic blood pressure 138 mm[Hg] 138 mm[Hg] e CW1 ([facility]) Body temperature 97.7 [degF] 97.7 [degF] eCW1 ( [facility]) Respiratory rate 18 /min 18 /min eCW1 ([facility]) Heart rate 65 /min 65 /min eCW1 ([facility]) Body mass index (BMI) [Ratio] 37.16 kg/m2 37.16 kg/m2 eCW1 ([facility]) Body height 70 [in_us] 70 [in_us] eCW1 ([facility]) Body weight Measured 259 [lb_av] 259 [lb_av] eC W1 ([facility])
[2020-05-25] MEDS ORDERED: propofoL 200 MG/20 ML VIAL As Ordered ONE (11:32)
[2020-05-25] MEDS ORDERED: LIDOCAINE 2% 100MG/5ML SDV (FOR ANES.) As Ordered ONE (11:32)
--- NOTE | 2020-05-25 12:23 | ROOR ---
Patient Name: Devan Giordano Procedure Date: 05/25/2020 11:55 AM Date of : 1960 Age: 59 Room: [facility] Gender: Male Note Status: Finalized Procedure: Colonoscopy Indications: Positive Cologuard test Providers: DO Paulo Grajeda MD: Claudine Collier NP Requesting Provider: Medicines: Propofol per Anesthesia Complications: No immediate complications. Procedure: Pre-Anesthesia Assessment: - Prior to the procedure, a History and Physical was performed, and patient medications and allergies were reviewed. The patient is competent. The risks and benefits of the procedure and the sedation options and risks were discussed with the patient. All questions were answered and informed consent was obtained. Patient identification and proposed procedure were verified by the physician, the nurse, the anesthesiologist and the live truck technician in the endoscopy suite. Mental Status Examination: alert and oriented. Airway Examination: normal oropharyngeal airway and neck mobility. Respiratory Examination: clear to auscultation. CV Examination: normal. Prophylactic Antibiotics: The patient does not require prophylactic antibiotics. Prior Anticoagulants: The patient has taken no previous anticoagulant or antiplatelet agents. ASA Grade Assessment: II - A patient with mild systemic disease. After reviewing the risks and benefits, the patient was deemed in satisfactory condition to undergo the procedure. The anesthesia plan was to use monitored anesthesia care (MAC). Immediately prior to administration of medications, the patient was re-assessed for adequacy to receive sedatives. The heart rate, respiratory rate, oxygen saturations, blood pressure, adequacy of pulmonary ventilation, and response to care were monitored throughout the procedure. The physical status of the patient was re-assessed after the procedure. The Colonoscope was introduced through the anus and advanced to the cecum, identified by appendiceal orifice and ileocecal valve. The colonoscopy was performed without difficulty. The patient tolerated the procedure well. Findings: A few small-mouthed diverticula were found in the sigmoid colon. A 9 mm polyp was found in the descending colon. The polyp was pedunculated. The polyp was removed with a jumbo cold forceps. Resection and retrieval were complete. Estimated blood loss was minimal. Non-bleeding internal hemorrhoids were found during retroflexion. The hemorrhoids were mild and Grade II (internal hemorrhoids that prolapse but reduce spontaneously). Impression: - Diverticulosis in the sigmoid colon. - One 9 mm polyp in the descending colon, removed with a jumbo cold forceps. Resected and retrieved. - Non-bleeding internal hemorrhoids. Recommendation: - Patient has a contact number available for emergencies. The signs and symptoms of potential delayed complications were discussed with the patient. Return to normal activities tomorrow. Written discharge instructions were provided to the patient. - Await pathology results. - Repeat colonoscopy in 3 - 5 years for surveillance based on pathology results. - Return to my office PRN. - Telephone my office for pathology results in 1 week. Procedure Code(s): --- Professional --- 30318, Colonoscopy, flexible; with biopsy, single or multiple Diagnosis Code(s): --- Professional --- K64.1, Second degree hemorrhoids K63.5, Polyp of colon R19.5, Other fecal abnormalities K57.30, Diverticulosis of large intestine without perforation or abscess without bleeding CPT copyright 2019 [employer]. All rights reserved. The codes documented in this report are preliminary and upon collection officer review may be revised to meet current compliance requirements. Ruel Beasley DO 05/25/2020 12:23:02 PM Electronically signed by Ruel Beasley DO Number of Addenda: 0 Note Initiated On: 05/25/2020 11:55 AM Estimated Blood Loss: Estimated blood loss was minimal.
[2020-05-25 12:40] VITALS: BP 127/70
== END 2020-05-25 12:56 | disposition home or self-care (01) ==
LOC: M OPP 11:03
PROVIDERS: ATTEND Surgery
DX: R19.5 Other fecal abnormalities (principal); D12.4 Benign neoplasm of descending colon; K57.30 Diverticulosis of large intestine without perforation or abscess without bleeding; K64.1 Second degree hemorrhoids; I10 Essential (primary) hypertension; M10.9 Gout, unspecified; Z86.711 Personal history of pulmonary embolism; Z85.46 Personal history of malignant neoplasm of prostate; Z92.3 Personal history of irradiation; Z79.01 Long term (current) use of anticoagulants; Z79.899 Other long term (current) drug therapy

== ENCOUNTER → 2020-10-25 | Outpatient (CLI) | payer BC, OTHER ==
[2020-10-25 11:46] LABS: BASO % 0.4 % (0.0-1.0); EOS # 0.2 10^3/uL (0.0-0.5); EOS % 3.4 % (0.0-3.0); HEMATOCRIT 44.6 % (42.0-52.0); HEMOGLOBIN 14.9 g/dl (13.5-17.5); LYMPH # 1.4 10^3/uL (1.5-5.0); LYMPH % 27.2 % (24.0-44.0); MEAN CORPUSCULAR HEMOGLOBIN 30.3 pg (27.0-33.0); MEAN CORPUSCULAR HGB CONC 33.4 g/dl (32.0-36.5); MEAN CORPUSCULAR VOLUME 90.8 fl (80.0-96.0); MONO # 0.4 10^3/uL (0.0-0.8); MONO % 8.7 % (2.0-8.0); NEUTROPHILS % 60.1 % (36.0-66.0); PLATELET COUNT, AUTOMATED 146 10^3/uL (150-450); RED BLOOD COUNT 4.91 10^6/uL (4.30-6.10)
[2020-10-25 12:09] LABS: ALBUMIN 3.4 GM/DL (3.2-5.2); ALT/SGPT 35 U/L (12-78); BILIRUBIN,TOTAL 0.6 MG/DL (0.2-1.0); BLOOD UREA NITROGEN 22 MG/DL (7-18); CALCIUM LEVEL 8.9 MG/DL (8.5-10.1); CARBON DIOXIDE LEVEL 25 MEQ/L (21-32); CHLORIDE LEVEL 112 MEQ/L (98-107); CHOLESTEROL LEVEL 155 MG/DL (<200); GLOMERULAR FILTRATION RATE > 60.0 (>56); GLUCOSE, FASTING 96 MG/DL (70-100); HDL CHOLESTEROL 63 MG/DL (>40); LDL CHOLESTEROL 78 MG/DL (<100); NON-HDL-C 92 MG/DL; POTASSIUM SERUM 3.9 MEQ/L (3.5-5.1); SODIUM LEVEL 144 MEQ/L (136-145); TOTAL PROTEIN 6.2 GM/DL (6.4-8.2); TRIGLYCERIDES LEVEL 72 MG/DL (<150); URIC ACID 5.1 MG/DL (3.5-7.2)
== END ==
LOC: M WUC 10:43
PROVIDERS: ATTEND Family Medicine
DX: I10 Essential (primary) hypertension (principal); M10.9 Gout, unspecified

== ENCOUNTER → 2021-10-30 | Outpatient (CLI) | payer BC, OTHER | LOC: M WUC 08:27 | PROVIDERS: ATTEND Urology | DX: C61 Malignant neoplasm of prostate (principal) ==

== ENCOUNTER → 2021-10-30 | Outpatient (CLI) | payer BC, OTHER ==
[2021-10-30 09:50] LABS: BASO % 0.5 % (0.0-1.0); EOS # 0.1 10^3/uL (0.0-0.5); EOS % 1.9 % (0.0-3.0); HEMATOCRIT 45.1 % (42.0-52.0); HEMOGLOBIN 14.9 g/dl (13.5-17.5); LYMPH # 1.3 10^3/uL (1.5-5.0); LYMPH % 22.2 % (24.0-44.0); MEAN CORPUSCULAR HEMOGLOBIN 29.5 pg (27.0-33.0); MEAN CORPUSCULAR VOLUME 89.3 fl (80.0-96.0); MONO # 0.5 10^3/uL (0.0-0.8); MONO % 9.2 % (2.0-8.0); NEUTROPHILS # 3.8 10^3/uL (1.5-8.5); NEUTROPHILS % 65.9 % (36.0-66.0); PLATELET COUNT, AUTOMATED 183 10^3/uL (150-450); RED BLOOD COUNT 5.05 10^6/uL (4.30-6.10); WHITE BLOOD COUNT 5.8 10^3/uL (4.0-10.0)
[2021-10-30 10:28] LABS: ALBUMIN 3.5 GM/DL (3.2-5.2); ALT/SGPT 34 U/L (12-78); BILIRUBIN,TOTAL 0.5 MG/DL (0.2-1.0); BLOOD UREA NITROGEN 21 MG/DL (7-18); CALCIUM LEVEL 8.9 MG/DL (8.5-10.1); CARBON DIOXIDE LEVEL 28 MEQ/L (21-32); CHLORIDE LEVEL 109 MEQ/L (98-107); CHOLESTEROL LEVEL 143 MG/DL (<200); CREATININE FOR GFR 1.16 MG/DL (0.70-1.30); GLOMERULAR FILTRATION RATE > 60.0 (>56); GLUCOSE, FASTING 108 MG/DL (70-100); HDL CHOLESTEROL 52 MG/DL (>40); LDL CHOLESTEROL 77 MG/DL (<100); NON-HDL-C 91 MG/DL; SODIUM LEVEL 143 MEQ/L (136-145); TOTAL PROTEIN 6.3 GM/DL (6.4-8.2); TRIGLYCERIDES LEVEL 71 MG/DL (<150)
== END ==
LOC: M WUC 08:25
PROVIDERS: ATTEND Nurse Practitioner Family
DX: I10 Essential (primary) hypertension (principal)